=== PATIENT | male | born 1950 | race Caucasian/White ===

== ENCOUNTER 2023-02-28 07:08 | Emergency (ER) | payer BC, SELFPAY ==
[2023-02-28 07:09] VITALS: BP 170/95; PULSE 86; RESP 16; TEMP 37.2; O2SAT 94; BMI 25.4
--- NOTE | 2023-02-28 07:34 | CT_ITS ---
STUDY: CT SOFT TISSUE NECK WITH CONTRAST REASON FOR EXAM: Male, 72 years old. Right submandibular swelling/mass RADIATION DOSAGE (If Supplied By Facility): CTDIvol = ( 15.38 ) mGy, DLP = ( 445.57 ) mGycm TECHNIQUE: The patient was scanned in a multi-detector CT scanner. High resolution transaxial imaging was performed following intravenous administration of IV 75mL Isovue-300. Sagittal and coronal images were reconstructed. Individualized dose optimization techniques were used for this CT. COMPARISON: None. FINDINGS: Normal bilateral parotid glands. 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 Normal bilateral parapharyngeal spaces. Normal bilateral carotid spaces. Normal bilateral sublingual and submandibular glands and spaces. Normal visualized nasopharynx. Normal retropharyngeal space. Normal perivertebral space. Normal visualized bilateral faucial tonsils. The visualized tongue, tongue base and oropharynx are normal. There is a 5.9 cm x 5.5 cm 5 cm heterogeneous complex solid and cystic mass in the right side of the neck extending from just below the right parotid gland down into the right cervical region inferiorly. A neoplastic process should be ruled out. A large abscess should also be considered in the differential diagnosis. There is no demonstrated solid or cystic mass lesion. There is no abnormal contrast enhancement. Normal epiglottis, bilateral vallecula and hypopharynx. The pre-epiglottic and paraglottic adipose spaces are normal. Normal visualized bilateral piriform sinuses, aryepiglottic folds, vocal cords, and arytenoid-cricoid articulations. Normal subglottic trachea. Heterogeneous appearance of the left lobe of the thyroid. Normal visualized pulmonary apices. Normal visualized paranasal sinuses. There is multilevel degenerative changes of the cervical spine. CT/Soft Tissue Neck WITH Contrast IMPRESSION: 5.9 cm x 5.5 cm x 5 cm heterogeneous complex solid and cystic mass in the right neck extending from just below the right parotid gland down into the right cervical region. A neoplastic process should be ruled out. The soft tissue planes are obliterated. This may represent either a neoplastic process or large abscess. Electronically Signed: Christo Fuentes MD at 10:28 EDT ,
--- NOTE | 2023-02-28 07:41 | EX.ED.DYSGE1 ---
HPI History of Present Illness Chief Complaint: Dental Informant: patient Narrative Narrative: Patient is a 72-year-old male with history of tobacco use presenting with worsening right jaw swelling. Patient states for the past 5 and has had progressive worsening swelling of his right jaw at the angle of the mandible. States its mildly uncomfortable. He has been following with a dentist, Dr. Evans, in [facility] who thought it could be infection. He states he had his right lower back molar pulled yesterday. He has not had any prior imaging. Patient is currently on clindamycin. Patient was instructed to come to the emergency room for further evaluation and possible drainage of this swelling is concern for abscess. Patient denies any difficulty swallowing. He has not had a significant supervisor records change the past few days but a progressive worsening of the swelling. Denies any fever or chills. Has had some mild intentional weight loss. Patient and recently moved here from [place]. Patient continues to smoke cigarettes. Denies any night sweats or other systemic symptoms. PFSH PFSH Allergy/AdvReac Type Severity Reaction Status Date / Time No Known Allergies Allergy Verified 02/28/23 07:09 Social History Smoking Status: Current every day smoker tobacco type: cigarettes ROS ROS ED Constitutional Constitutional ED: Reports weight loss; Denies chills, fever(s) or sweats Eyes Eyes: Denies change in vision ENT ENT ED: Reports other Details: right neck/face swelling ; Denies rhinorrhea or sore throat Cardiovascular Cardiovascular: Denies chest pain Respiratory/Chest Respiratory/Chest: Denies cough or dyspnea Gastrointestinal Gastrointestinal: Denies nausea or vomiting Musculoskeletal Musculoskeletal: Reports neck pain; Denies arthralgias or myalgias Integumentary Denies rash Neurologic Neurologic: Denies headache(s) or weakness EXAM Physical Exam Const Vital Signs: 02/28/23 07:09 02/28/23 09:08 Temperature 99 F 97.3 F L Temperature Source Temporal Temporal Pulse Rate 86 65 Respiratory Rate 16 18 Blood Pressure 170/95 H 140/78 H Blood Pressure Mean 120 98 Pulse Ox 94 98 Oxygen Delivery Method Room Air Room Air Positive well nourished and well developed General Appearance ED: well developed and NAD HEENT Reports moist mucous membranes HEENT Narrative: Cerumen impaction on the right. Normal left tympanic membrane. Mild erythema and injury of the right lower back molar consistent with recent extraction. No surrounding edema present. Sublingual mucosa is soft. Normal oropharynx. Patient has approximately 6 cm x 5 cm firm area of swelling/mass at the right angle of the mandible. It is nonmobile. I do not appreciate fluctuance or overlying skin changes. Eyes PERRL and EOMs intact bilaterally Neck supple and no JVD Neck Narrative: Swelling/mass at the right angle of the mandible, see above Chest Wall inspection of chest normal and palpation of chest normal Resp normal respiratory effort and clear to auscultation bilaterally Cardio regular rate, regular rhythm and no murmurs GI normal to inspection, nondistended, normoactive bowel sounds and non-tender Neuro oriented x3 Sensorium / Orientation: alert Motor Exam: Negative for general weakness Psych mental status grossly normal Skin no rashes or lesions noted and no wounds MDM MDM MDM Narrative Medical decision making narrative: Patient is a 72-year-old male presenting with worsening right submandibular swelling/mass. Is been progressively ongoing for about 5 months and he does not have any fever. He was concerned about abscess based on what his dentist said however I am much more concerned about malignancy based on his history of tobacco use, longevity of symptoms and age. There is no airway or esophageal compromise. He is handling his secretions well. Basic lab work and a CT is obtained for further evaluation. Differential includes submandibular mass, abscess and cyst. This does not feel like a lymph node on palpation but that is also on the differential. CBC shows a mild leukocytosis 11.8 which is pretty nonspecific. Lab work otherwise largely unremarkable. No prior labs available for comparison. CT of the soft tissue neck does show a 5.9 x 5.5 x 5 cm heterogenous complex solid and cystic mass in the right neck extending from just below the parotid gland into the right cervical region. Neoplastic process should be ruled out. I did speak with Dr. Dubois, ENT on-call, he also is quite concerned about a neoplastic process and states patient will need outpatient follow-up for biopsy with FNA. Patient is given the office information and counseled on our concerns. Counseled at this time we do not think incision and drainage would be in his best interest and were much more concerned about neoplasm/cancer. He can continue to take the clindamycin ordered by his dentist. Patient and do verbalize agreement nursing of this plan. I did encourage smoking cessation with the patient especially as tobacco use is a risk factor for multiple cancers. He does not have findings consistent with dry sockets and I do not think this is an acute complication associated with his dental extraction from yesterday. Lab Data Attestation: I reviewed the patient's lab results. Labs: Laboratory Results - last 24 hr 02/28/23 07:15 WBC 11.8 H RBC 5.07 Hgb 16.4 Hct 47.7 MCV 94.1 H MCH 32.3 H MCHC 34.4 RDW Std Deviation 46.9 H RDW Coeff of Lilliana 13.6 Plt Count 170 MPV 11.0 Immature Gran % (Auto) 0.500 Neut % (Auto) 55.3 Lymph % (Auto) 27.8 Lee % (Auto) 11.5 H Eos % (Auto) 4.3 Baso % (Auto) 0.6 Absolute Neuts (auto) 6.5 Absolute Lymphs (auto) 3.27 Nucleated RBC % 0 Sodium 142 Potassium 4.4 Chloride 112 H Carbon Dioxide 27.0 Anion Gap 3 L BUN 22 H Creatinine 1.12 Estim Creat Clear Calc 54.10 Est GFR (MDRD) Af Amer 82 Est GFR (MDRD) Non-Af 68 BUN/Creatinine Ratio 19.6 Glucose 104 Calcium 9.4 Radiography Diagnostic Testing: Clinical Impression(s) from Imaging Studies Soft Tissue Neck CT 02/28/23 07:34 IMPRESSION: 5.9 cm x 5.5 cm x 5 cm heterogeneous complex solid and cystic mass in the right neck extending from just below the right parotid gland down into the right cervical region. A neoplastic process should be ruled out. The soft tissue planes are obliterated. This may represent either a neoplastic process or large abscess. Electronically Signed: Christo Fuentes MD at 10:28 EDT , Management Discussion w/another healthcare provider: [facility] Discharge Plan Triage Chief Complaint: Dental ED Provider: Lisbeth Novak Dx/Rx/DC Orders Clinical Impression: Mass of right side of neck, Parotid mass Instructions: ED Salivary Gland Swelling ... Primary Care Provider: Care Physician,No Primary Referrals: Emre Dukes MD [Med Staff - Active Staff] - As soon as possible Care Physician,No Primary [Primary Care Provider] - Activity Restrictions/Additional Instructions: The swelling on your neck is concerning for possible cancer/mass. At this time I have a much lower suspicion for an abscess especially with given how long its been going on. Please follow-up closely with ear nose and throat doctor. Call the office today to let them know that Dr. Devi wanted you to be seen for possible new neck mass/cancer and that you will likely need fine-needle aspirate (FNA) per Dr. Devi. Please continue antibiotics prescribed with your dentist. If you develop any difficulty breathing, swallowing or progression/worsening your symptoms including fever or chills please return immediately to the emergency room. Disposition Disposition: Home, Self Care
[2023-02-28 07:59] LABS: Absolute Lymphocyte Count 3.27 X10^3/uL (0.83-4.51); Absolute Neutrophil Count 6.5 X10^3/uL (2.0-7.7); Basophil# 0.07 X10^3/uL; Basophil% 0.6 % (0-1); Eosinophil# 0.51 X10^3/uL; Eosinophils% 4.3 % (0-5); Hematocrit 47.7 % (40-54); Hemoglobin 16.4 g/dL (13.0-16.5); Lymphocyte # 3.27 X10^3/ul (0.83-4.51); Lymphocyte % 27.8 % (19-41); Mean Corp Hgb Conc 34.4 g/dL (32-36); Mean Corpuscular Hgb 32.3 pg (27.0-32.0); Mean Corpuscular Volume 94.1 fL (80-94); Monocyte# 1.35 X10^3/uL; Monocyte% 11.5 % (0-10); NRBC Flagged by Analyzer 0 % (0-5); Neutrophil % 55.3 % (47-70); Platelet Count 170 K/mm3 (150-450); RBC Distribution Width CV 13.6 % (11.6-14.6); RBC Distribution Width SD 46.9 fl (35.1-43.9); Red Blood Count 5.07 M/mm3 (4.6-6.2); White Blood Count 11.8 K/mm3 (4.4-11.0)
[2023-02-28 08:01] LABS: Anion Gap 3 (5-15); BUN 22 mg/dL (7-18); BUN/Creat Ratio 19.6 RATIO (10-20); Calcium,Total 9.4 mg/dL (8.5-10.1); Chloride 112 mmol/L (98-107); Creatinine, Serum 1.12 mg/dL (0.70-1.30); EST Glomerular Filtration Rate 68 mL/min (>60); Est Glom Filt Rate - Afr Amer 82 mL/min (>60); Glucose 104 mg/dL (74-106); Potassium 4.4 mmol/L (3.5-5.1); Sodium Level 142 mmol/L (136-145)
[2023-02-28 09:08] VITALS: BP 140/78; PULSE 65; RESP 18; TEMP 36.3; O2SAT 98
== END 2023-02-28 11:01 | disposition home or self-care (01) ==
PROVIDERS: Emergency Provider Emergency Medicine; Visit Provider Emergency Medicine
DX: R22.1 Localized swelling, mass and lump, neck (principal); F17.210 Nicotine dependence, cigarettes, uncomplicated
CPT/HCPCS: 70491; 80048; 85025; 99282; Q9967; A4216

== ENCOUNTER → 2023-03-08 | Outpatient (CLI) | payer BC, MEDICARE, SELFPAY ==
--- NOTE | 2023-03-08 | ASPOS_PTH ---
PATIENT: RUIZ SANTOS LOC: [facility] U#:[id number] AGE/SX: 72/M ROOM: RE03/08/[address]: Dr. Federico Estrada MD : 1950 BED: DIS: 03/08/2023 SPEC #: [id number] RECD: 03/08/23 11:43 STATUS: BELEN RAMAKRISHNA #: [id number] KOFFI: 03/08/23 00:[address]: Federico Estrada DEPT: CYTOLOGY RECD BY: Jill Gomez ENTERED: 03/08/23 11:43 SP TYPE: ASP HERE OTHR DR: No Primary Care Phys Tissues: Parotid gland, NOS Procedures: Surgery Specimen Level IV Cytology Other Fine Needle Asp on Site HEADER OPERATION: Fine needle aspiration right parotid gland PRE-OP DIAGNOSIS: Neck mass TISSUE SUBMITTED: Right parotid gland DIAGNOSIS CYTOLOGY Fine needle aspiration, right parotid gland mass (smears and cell block): Marked acute inflammation with changes of benign cyst contents. See comment. AM:alejandro 03/09/2023 COMMENT A fine needle aspiration was performed and the specimen is evaluated at the time of FNA by Dr. Cody. Immediate Evaluation = Consistent with benign cyst contents with acute inflammation. 6.2 cc of light-colored fluid was aspirated from the lesion resulting in significant reduction in size of mass. The smears and cell block show marked acute inflammation with scattered macrophages. There is no evidence of malignancy. Clinical correlation is necessary. Case has been reviewed in consultation with Dr. Whipple who concurs with the above diagnosis. IDC:SJ CYTOLOGY STUDY Slides are reviewed. CYTOLOGY GROSS Received is 6.2 ml of light ramon fluid labeled with the patient's name, and designated right parotid gland. Five imprints and three paps are made from the submitted fluid and the rest is added to CytoLyt for cell block preparation. Submitted for cytology study. / AM:alejandro 03/08/2023 TC:2 CPT: 27814, 60613, 08668, 78037
== END | disposition home or self-care (01) ==
PROVIDERS: Referring Provider Otolaryngology Otolaryngology/Facial Plastic Surgery; Visit Provider Otolaryngology Otolaryngology/Facial Plastic Surgery
DX: D11.0 Benign neoplasm of parotid gland (principal)
CPT/HCPCS: 10021; 88161; 88305

== ENCOUNTER 2023-03-31 03:07 | Emergency (ER) | payer MEDICARE, SELFPAY ==
[2023-03-31 03:08] VITALS: BP 124/67; PULSE 58; RESP 18; TEMP 35.6; O2SAT 100; BMI 23.7
--- NOTE | 2023-03-31 03:14 | CT_ITS ---
INDICATION: headache EXAMINATION: CT BRAIN - CT Head or Brain W/O Contrast Injection TECHNIQUE: Multiple axial images were obtained of the head without intravenous contrast. A radiation dose optimization technique was used for this scan. IV Contrast dosage and agent: None. COMPARISON: Soft tissue neck CT February 28, 2023 FINDINGS: BRAIN PARENCHYMA: No intra- or extra-axial hemorrhage. No evidence of acute infarct. No intracranial mass or mass effect. Mild periventricular and subcortical white matter hypodense chronic small vessel white matter ischemic change. There is preservation of the maier/white matter interface. Posterior fossa structures are unremarkable. Carotid and vertebral atherosclerosis. CSF SPACES: Cerebral volume appropriate for age. No hydrocephalus. Basal cisterns are patent. CALVARIUM, SKULL BASE, PARANASAL SINUSES AND MASTOID AIR CELLS: Acute right maxillary sinus disease with scattered chronic ethmoid mucoperiosteal thickening. Mild chronic wall thickening in the right maxillary sinus. Mastoid air cells are clear. Partially seen right posterior facial mass at the inferior margin of the parotid gland and extending to the right pharyngeal soft tissues posterior to the right mandible, axial image 1,, better assessed February 28, 2023. Mild edema in the right parapharyngeal fat. No acute osseous finding. ORBITS: Both globes, extraocular muscles, optic nerves and retrobulbar fat appear unremarkable. ASPECTS Score for Acute Strokes: 10 CT/Brain/Head without Contrast IMPRESSION: No CT evidence of acute intracranial hemorrhage or injury. Mild senescent changes. Partially seen right posterior facial mass along the inferior right parotid gland extending into the right pharyngeal soft tissues posterior to right mandible. This is better seen on comparison CT neck February 28, 2023. Electronically Signed: Devin Johnson MD at 4:45 EDT ,
[2023-03-31] MEDS: DiphenhydrAMINE 50 MG/ML Syringe 25 MG IV (03:22)
[2023-03-31] MEDS: 0.9% Normal Saline 1,000 ML 1000 ML IV (03:23)
[2023-03-31] MEDS: HYDROmorphone 1 MG/ML Syringe IV (03:23)
[2023-03-31] MEDS: Metoclopramide 10 MG/2 ML Vial 5 MG IV (03:23)
[2023-03-31 03:24] LABS: Absolute Lymphocyte Count 3.95 X10^3/uL (0.83-4.51); Absolute Neutrophil Count 8.2 X10^3/uL (2.0-7.7); Basophil# 0.08 X10^3/uL; Basophil% 0.6 % (0-1); Eosinophil# 0.54 X10^3/uL; Eosinophils% 3.8 % (0-5); Hematocrit 46.3 % (40-54); Hemoglobin 15.5 g/dL (13.0-16.5); Lymphocyte # 3.95 X10^3/ul (0.83-4.51); Lymphocyte % 27.5 % (19-41); Mean Corp Hgb Conc 33.5 g/dL (32-36); Mean Corpuscular Hgb 31.4 pg (27.0-32.0); Mean Corpuscular Volume 93.9 fL (80-94); Mean Platelet Vol. 11.1 fl (6.2-12.0); Monocyte# 1.52 X10^3/uL; Monocyte% 10.6 % (0-10); NRBC Flagged by Analyzer 0 % (0-5); Neutrophil # 8.21 X10^3/uL (2.7-7.7); Neutrophil % 56.9 % (47-70); POSITIVE DIFFERENTIAL YES; Platelet Count 184 K/mm3 (150-450); RBC Distribution Width CV 13.3 % (11.6-14.6); RBC Distribution Width SD 46.1 fl (35.1-43.9); Red Blood Count 4.93 M/mm3 (4.6-6.2); White Blood Count 14.4 K/mm3 (4.4-11.0)
[2023-03-31 03:27] LABS: Differential Indicated SCAN CRITERIA MET
[2023-03-31 03:30] LABS: Erythrocyte Sedimentation Rate 5 mm/hr (0-20)
[2023-03-31 03:39] LABS: ALB/GLOB Ratio 1.1 RATIO (0.9-2.4); AST(SGOT) 12 U/L (15-37); Alanine Aminotransfer ALT/SGPT 19 U/L (16-61); Albumin, Serum 3.5 g/dL (3.2-5.0); Alkaline Phosphatase 102 U/L (45-117); Anion Gap 7 (5-15); BUN 19 mg/dL (7-18); BUN/Creat Ratio 16.7 RATIO (10-20); Calcium,Total 9.3 mg/dL (8.5-10.1); Chloride 111 mmol/L (98-107); Creatinine, Serum 1.14 mg/dL (0.70-1.30); EST Glomerular Filtration Rate 67 mL/min (>60); Est Glom Filt Rate - Afr Amer 81 mL/min (>60); Estimated Creatinine Clearance 53.15 ml/min; Globulin 3.3 g/dL (2.2-4.2); Glucose 135 mg/dL (74-106); Potassium 3.9 mmol/L (3.5-5.1); Protein, Total 6.8 g/dL (6.4-8.2); Sodium Level 141 mmol/L (136-145)
--- NOTE | 2023-03-31 03:39 | EX.ED.DYSGE1 ---
HPI History of Present Illness Chief Complaint: Headache Narrative Narrative: Patient has had a mass in the right neck region for at least 6 months, he is due to have surgery at soon, however today he developed a headache. He has had headaches for a few months and has been similar however today it is worse. It was gradual in onset. It was not a thunderclap headache. He has no vision changes no weakness or paresthesias no fevers or chills. PFSH PFSH Home Medications NK 03/31/23 [History Last Taken Unknown] Allergy/AdvReac Type Severity Reaction Status Date / Time No Known Allergies Allergy Verified 03/31/23 03:07 Surgical History (Updated 03/31/23 @ 03:09 by Dayana Mccauley) H/O kidney removal Total knee replacement status Social History Smoking Status: Current every day smoker tobacco type: cigars ROS ROS ED ROS Narrative Past medical history: Reviewed Medications: Reviewed Social history: Noncontributory Review of systems: All systems negative except as indicated General: No fever Eyes: No visual changes ENT: Right neck mass Neck: No neck pain Cardiovascular: No chest pain Respiratory: No shortness of breath or cough Gastrointestinal: No abdominal pain, nausea vomiting or diarrhea Genitourinary: No dysuria Musculoskeletal: Denies myalgias no difficulty with ambulation Skin: No rash Neurological: No memory loss, confusion or any focal weakness. Headache as in HPI Psych: No recent behavioral changes Hematologic: No easy bleeding or easy bruising EXAM Physical Exam Narrative Exam Narrative: Physical exam General: Patient appears somewhat uncomfortable Head: Normocephalic, Atraumatic Eyes: Conjunctiva not pale ENT: Moist mucous membranes Neck: Right-sided neck mass, no signs of infection. Normal voice handling secretions well, the mass is not near the airway Cardiovascular: Regular rate, Regular rhythm Respiratory: No distress, CTA bilaterally Abdomen: Soft, Nontender, Nondistended Back: Nontender, Normal Inspection. Negative for: CVA tenderness Extremities: Nontender, No edema Skin: Normal color, No rash Neurological: Alert, Normal Strength, Normal Sensation Const Vital Signs: 03/31/23 03:08 03/31/23 04:41 Temperature 96.1 F L Temperature Source Temporal Pulse Rate 58 L 52 L Respiratory Rate 18 15 Blood Pressure 124/67 H 124/59 H Blood Pressure Mean 86 80 Pulse Ox 100 96 Oxygen Delivery Method Room Air MDM MDM MDM Narrative Medical decision making narrative: Patient received migraine cocktail and analgesics, he improved he is feeling much better and wants to be discharged home. I thought about possibility of giant cell arteritis, however ESR is normal. I thought about intracranial mass since he has neck mass however this is unfounded on the CT. There is no evidence of infectious disease like meningitis or encephalitis. He likely has a primary headache. Since he improved he will be discharged home. I talked to his also giving some of the history that she will take him home. Lab Data Labs: Laboratory Results - last 24 hr 03/31/23 03:15 WBC 14.4 H RBC 4.93 Hgb 15.5 Hct 46.3 MCV 93.9 MCH 31.4 MCHC 33.5 RDW Std Deviation 46.1 H RDW Coeff of Lilliana 13.3 Plt Count 184 MPV 11.1 Immature Gran % (Auto) 0.600 Neut % (Auto) 56.9 Lymph % (Auto) 27.5 [place] % (Auto) 10.6 H Eos % (Auto) 3.8 Baso % (Auto) 0.6 Absolute Neuts (auto) 8.2 H Absolute Lymphs (auto) 3.95 Nucleated RBC % 0 Differential Comment SCANNED Diff Path Review May foll ESR 5 Sodium 141 Potassium 3.9 Chloride 111 H Carbon Dioxide 23.0 Anion Gap 7 BUN 19 H Creatinine 1.14 Estim Creat Clear Calc 53.15 Est GFR (MDRD) Af Amer 81 Est GFR (MDRD) Non-Af 67 BUN/Creatinine Ratio 16.7 Glucose 135 H Calcium 9.3 Total Bilirubin 0.60 AST 12 L ALT 19 Alkaline Phosphatase 102 Total Protein 6.8 Albumin 3.5 Globulin 3.3 Albumin/Globulin Ratio 1.1 Radiography Diagnostic Testing: Clinical Impression(s) from Imaging Studies Brain CT 03/31/23 03:14 IMPRESSION: No CT evidence of acute intracranial hemorrhage or injury. Mild senescent changes. Partially seen right posterior facial mass along the inferior right parotid gland extending into the right pharyngeal soft tissues posterior to right mandible. This is better seen on comparison CT neck February 28, 2023. Electronically Signed: Devin Johnson MD at 4:45 EDT , Discharge Plan Triage Chief Complaint: Headache ED Provider: Rafael Camacho Dx/Rx/DC Orders Clinical Impression: Mass in neck, Headache Instructions: ED Headache Unspecified Prescriptions: No Action NK Primary Care Provider: Care Physician,No Primary Referrals: Care Physician,No Primary [Primary Care Provider] - Disposition Disposition: Home, Self Care
[2023-03-31 04:28] LABS: Differential Comment SCANNED
[2023-03-31 04:41] VITALS: BP 124/59; PULSE 52; RESP 15; O2SAT 96
[2023-03-31 05:07] VITALS: BP 126/59; PULSE 61; RESP 18; O2SAT 98
[2023-04-03 12:29] LABS: Pathologist Review Reviewed
== END 2023-03-31 05:08 | disposition home or self-care (01) ==
PROVIDERS: Emergency Provider Emergency Medicine; Visit Provider Emergency Medicine
DX: R22.1 Localized swelling, mass and lump, neck (principal); R51.9 Headache, unspecified; F17.290 Nicotine dependence, other tobacco product, uncomplicated
CPT/HCPCS: 70450; 80053; 85025; 85652; 96361; 96374; 96375; 99283; J7030; A4216

== ENCOUNTER 2023-10-17 04:51 | Observation (INO) | payer MEDICARE, SELFPAY ==
[2023-10-17] VITALS (12 sets, daily range): BP systolic 87–121; BP diastolic 55–75; PULSE 83–105; RESP 14–27; TEMP 36.5–37.6; O2SAT 94–100; BMI 20.1; BMI 20.7
--- NOTE | 2023-10-17 05:11 | RAD_ITS ---
EXAM: XR CHEST, 2 VIEWS CLINICAL INDICATION: fever, cough TECHNIQUE: Frontal and lateral views of the chest. COMPARISON: No relevant prior studies available. FINDINGS: LUNGS AND PLEURAL SPACES: Large area of consolidation in the right midlung consistent with pneumonia probably in the superior segment of the right lower lobe in posterior and anterior segments of the right upper lobe. No pneumothorax. No effusion. HEART: Unremarkable. Cardiac silhouette not enlarged. MEDIASTINUM: Central airways and mediastinal contour are unremarkable. BONES/JOINTS: Unremarkable. No acute fracture. SOFT TISSUES: Unremarkable. RAD/Chest PA and Lateral IMPRESSION: Large area of consolidation in the right midlung consistent with pneumonia probably in the superior segment of the right lower lobe in posterior and anterior segments of the right upper lobe. Electronically Signed: Saturnino Wallace MD at 6:30 EDT ,
--- NOTE | 2023-10-17 05:12 | EX.ED.DYSGE1 ---
HPI History of Present Illness Chief Complaint: Fever Informant: patient and spouse/S.O. Onset/Context/Timing Onset: Yesterday Context: Gradual Onset Timing: Waxes and wanes Quality: 103 Current Severity: Mild Maximum Severity: Moderate Relieved by: apap Narrative Narrative: brings in this patient with a fever up to 103 at home. He has had a mild nonproductive cough with this for the last day or 2. states for the past 2 weeks, patient is given complaining of some pain in his right lower lateral rib cage/flank. Denies any urinary symptoms that are new, and no dysuria/hematuria. Has had diarrhea that has been worse than usual since he last had chemo in May. Patient denies any travel out of the area and denies sick contacts. He states he usually walks 5 or 6 miles a day, but now is walking less because of the pain in his side hurts more to do so. This being the case, he states that in the last couple days the pain has been coming and going and been much more mild than it had been and right now he does not have it. PFSH PFSH Medical History Cancer DVT (deep venous thrombosis) Kidney stones Osteoporosis Smoker Home Medications Lactobacillus acidophilus 10 billion cell capsule (Probacap) 100 mmu cells PO DAILY 10/17/23 [History Last Taken Unknown] amoxicillin 875 mg-potassium clavulanate 125 mg tablet 875 mg (0.875 x 875-125 mg) PO Q12H #20 TABLETS 10/17/23 [Rx Last Taken Unknown] azithromycin 250 mg tablet 250 mg PO DAILY #4 TABLETS 10/17/23 [Rx Last Taken Unknown] Allergy/AdvReac Type Severity Reaction Status Date / Time No Known Allergies Allergy Verified 03/31/23 03:07 Surgical History H/O kidney removal Total knee replacement status Social History Smoking Status: Current every day smoker tobacco type: cigars ROS ROS ED Constitutional Constitutional ED: Reports chills and fever(s) Eyes Eyes: Denies change in vision or diplopia ENT ENT ED: Denies rhinorrhea or sore throat Cardiovascular Cardiovascular: Denies chest pain or palpitations Respiratory/Chest Respiratory/Chest: Reports cough; Denies dyspnea Gastrointestinal Gastrointestinal: Reports diarrhea; Denies abdominal pain, nausea or vomiting Genitourinary Genitourinary ED: Reports flank pain; Denies dysuria or hematuria Musculoskeletal Musculoskeletal: Denies back pain or neck pain Integumentary Denies abscess or rash Neurologic Neurologic: Denies headache(s), paresthesias or weakness Psychiatric Psychiatric: Denies suicidal ideation or suicidal thoughts EXAM Physical Exam Const Vital Signs: 10/17/23 04:53 10/17/23 05:38 10/17/23 07:00 Temperature 99.6 F H Temperature Source Oral Pulse Rate 105 H 97 90 Respiratory Rate 19 H 16 27 H Blood Pressure 121/69 H 96/58 L 111/62 Blood Pressure Mean 86 70 78 Pulse Ox 100 99 97 Oxygen Delivery Method Room Air Nasal Cannula Room Air Positive well nourished and well developed General Appearance ED: well developed and NAD HEENT Reports moist mucous membranes HEENT Narrative: Dry lips normocephalic and atraumatic Eyes PERRL and EOMs intact bilaterally Neck full ROM, no lymphadenopathy, supple and no JVD Chest Wall inspection of chest normal and palpation of chest normal Chest Narrative: Nontender throughout right-sided rib cage where patient indicates he was having the pain. And no subcostal tenderness. Normal on inspection no rash. Resp normal respiratory effort and clear to auscultation bilaterally Cardio regular rate and regular rhythm Cardio Narrative: Faint heart sounds GI non-tender and non-distended Auscultation: normoactive bowel sounds Palpation: soft Back/Spine no CVA tenderness General Back: other FROM Extremity normal to inspection General Extremety ED: Negative for edema, pulses abnormal or tenderness General Extremity: Negative for edema or pulses abnormal Neuro oriented x3, CN's II-XII intact bilaterally and no sensory deficits noted Sensorium / Orientation: awake and alert Motor Exam: strength 5/5 throughout Psych mental status grossly normal Skin no rashes or lesions noted and no wounds MDM MDM MDM Narrative Medical decision making narrative: Patient's 2 view chest x-ray shows a large right-sided infiltrate involving several lobes, this explains that the pain he was having on his side, his cough, and his fever. Given this and his leukocytosis with a strong left shift, I added a lactic acid, hepatic panel so I could look at his bilirubin, and blood cultures. All this was done and we gave him Zosyn and azithromycin to cover him for community-acquired pneumonia. The lactate returned within normal limits, his total bilirubin is slightly elevated but not at the 2 or higher threshold that we use for septic criteria. In addition to this with his IV fluids, his heart rate improved, his blood pressure improved, and with ambulation he was not dyspneic, felt well, and went no lower than 97% on room air and for the most part is at 99-100%. I discussed with he and his my concern for the pneumonia, and offered admission, but they declined and he feels well enough to go home and prefers that. I think this is reasonable at this time. His port score is 3, which also supports outpatient or inpatient treatment depending on clinical judgment. Given this I am going to prescribe him dual antibiotic therapy for better coverage; Augmentin and Zithromax, continuing what we started as far as coverage. Discussed reasons to return. He is comfortable with that plan. In speaking more with the patient about follow-up he states he does not have a family doctor. Referred him to the next doctor on the unassigned list, Dr. Richards. Lab Data Attestation: I reviewed the patient's lab results. Labs: Laboratory Results - last 24 hr 10/17/23 10/17/23 10/17/23 05:30 07:35 07:40 WBC 18.1 H RBC 4.43 L Hgb 14.4 Hct 44.1 MCV 99.5 H MCH 32.5 H MCHC 32.7 RDW Std Deviation 54.0 H RDW Coeff of [place]illiana 14.6 Plt Count 166 MPV 11.1 Immature Gran % (Auto) 1.400 H Neut % (Auto) 90.0 H Lymph % (Auto) 4.1 L [place] % (Auto) 3.8 Eos % (Auto) 0.3 Baso % (Auto) 0.4 Absolute Neuts (auto) 16.3 H Absolute Lymphs (auto) 0.75 L Nucleated RBC % 0 Sodium 136 Potassium 4.0 Chloride 103 Carbon Dioxide 26.0 Anion Gap 7 BUN 34 H Creatinine 1.37 H Estim Creat Clear Calc 39.01 Est GFR (MDRD) Af Amer 65 Est GFR (MDRD) Non-Af 54 L BUN/Creatinine Ratio 24.8 H Glucose 84 Lactic Acid 1.3 Calcium 9.4 Total Bilirubin 1.30 H Direct Bilirubin 0.32 H AST 11 L ALT 17 Alkaline Phosphatase 97 Total Protein 7.4 Albumin 3.2 Globulin 4.2 Urine Color Yellow Urine Clarity Clear Urine pH 6.0 Ur Specific [place] 1.015 Urine Protein 30 H Urine Glucose (UA) Normal Urine Ketones 5 H Urine Occult Blood 10 H Urine Nitrite Negative Urine Bilirubin Negative Urine Urobilinogen Normal Ur Leukocyte Esterase 25 H Urine RBC 0-5 SEEN Urine WBC 0-5 SEEN Ur Squamous Epith Cells 0-5 SEEN Urine Bacteria 1+ Urine Mucus 0 SEEN Radiography Diagnostic Testing: Clinical Impression(s) from Imaging Studies Chest X-Ray 10/17/23 05:11 IMPRESSION: Large area of consolidation in the right midlung consistent with pneumonia probably in the superior segment of the right lower lobe in posterior and anterior segments of the right upper lobe. Electronically Signed: Saturnino Wallace MD at 6:30 EDT , Discharge Plan Triage Chief Complaint: Fever ED Provider: Doc Uriarte Dx/Rx/DC Orders Clinical Impression: Community acquired pneumonia Instructions: ED Pneumonia (Adult) Prescriptions: New azithromycin [azithromycin] 250 mg tablet 250 mg PO DAILY Qty: 4 0RF amoxicillin-pot clavulanate [amoxicillin-pot clavulanate] 875-125 mg tablet 875 mg PO Q12H Qty: 20 0RF No Action Probacap 10 billion cell capsule 100 mmu cells PO DAILY Primary Care Provider: Care Physician,No Primary Referrals: Severo Richards MD [Med Staff - [employer]] - As soon as possible Activity Restrictions/Additional Instructions: Continue taking your probiotic to prevent help prevent antibiotic associated diarrhea and C. difficile. You can start taking the Augmentin whenever you get it, start the Zithromax tomorrow morning 10/17, it is only once daily and you had a dose in the ER. Disposition Disposition: Home, Self Care
[2023-10-17] MEDS: 0.9% Normal Saline (1000mL) 1,000 ML 999 ML IV (05:37)
[2023-10-17 06:02] LABS: Anion Gap 7 (5-15); BUN 34 mg/dL (7-18); BUN/Creat Ratio 24.8 RATIO (10-20); Calcium,Total 9.4 mg/dL (8.5-10.1); Chloride 103 mmol/L (98-107); Creatinine, Serum 1.37 mg/dL (0.70-1.30); EST Glomerular Filtration Rate 54 mL/min (>60); Est Glom Filt Rate - Afr Amer 65 mL/min (>60); Estimated Creatinine Clearance 39.01 ml/min; Glucose 84 mg/dL (74-106); Sodium Level 136 mmol/L (136-145)
[2023-10-17 07:02] LABS: Absolute Lymphocyte Count 0.75 X10^3/uL (0.83-4.51); Absolute Neutrophil Count 16.3 X10^3/uL (2.0-7.7); Basophil# 0.07 X10^3/uL; Basophil% 0.4 % (0-1); Eosinophil# 0.05 X10^3/uL; Eosinophils% 0.3 % (0-5); Hematocrit 44.1 % (40-54); Hemoglobin 14.4 g/dL (13.0-16.5); Lymphocyte # 0.75 X10^3/ul (0.83-4.51); Lymphocyte % 4.1 % (19-41); Mean Corp Hgb Conc 32.7 g/dL (32-36); Mean Corpuscular Hgb 32.5 pg (27.0-32.0); Mean Corpuscular Volume 99.5 fL (80-94); Mean Platelet Vol. 11.1 fl (6.2-12.0); Monocyte# 0.68 X10^3/uL; Monocyte% 3.8 % (0-10); NRBC Flagged by Analyzer 0 % (0-5); Neutrophil # 16.29 X10^3/uL (2.7-7.7); POSITIVE MORPHOLOGY YES; Platelet Count 166 K/mm3 (150-450); RBC Distribution Width CV 14.6 % (11.6-14.6); Red Blood Count 4.43 M/mm3 (4.6-6.2); White Blood Count 18.1 K/mm3 (4.4-11.0)
[2023-10-17 07:11] LABS: Differential Indicated SCAN CRITERIA MET
[2023-10-17 07:29] LABS: AST(SGOT) 11 U/L (15-37); Alanine Aminotransfer ALT/SGPT 17 U/L (16-61); Albumin, Serum 3.2 g/dL (3.2-5.0); Alkaline Phosphatase 97 U/L (45-117); Bilirubin, Direct 0.32 mg/dL (0.00-0.30); Globulin 4.2 g/dL (2.2-4.2); Protein, Total 7.4 g/dL (6.4-8.2)
[2023-10-17 07:53] LABS: Mucous, Urine 0 SEEN /hpf (<or=2+)
[2023-10-17] MEDS: Piperacil/Tazobactam 4.5 GM in 0.9% Normal Saline (100mL MB+) 100 ML IV (07:54)
[2023-10-17 08:04] LABS: Color, Urine Yellow (Yellow); Glucose, Dipstick Normal (Normal); Ketone-Dipstick 5 mg/dl (Negative); Leukocyte Esterase-Dipstick 25 /ul (Negative); Nitrite-Dipstick Negative (Negative); Occult Blood-Urine 10 /ul (Negative); Protein-Dipstick 30 mg/dl (Negative); Specific Gravity, Urine 1.015 (1.002-1.030); Urine Bilirubin Dipstick Negative (Negative); Urine Clarity Clear (Clear); Urine Urobilinogen Normal (Normal)
[2023-10-17 08:13] LABS: Bacteria 1+ /hpf (None Seen); Red Blood Cells-Urine 0-5 SEEN /hpf (0-5); Squamous Epithelial Cells - UA 0-5 SEEN /hpf (0-5); White Blood Cells 0-5 SEEN /hpf (0-5)
[2023-10-17 08:20] LABS: Lactic Acid 1.3 mmol/L (0.4-1.9)
[2023-10-17] MEDS: Azithromycin 500 MG in Dextrose 5%-Water (250mL Bag) 250 ML 250 MG IV (08:33)
--- NOTE | 2023-10-17 10:02 | PCM.HP.STD ---
HPI - General General Date of Admission: 10/17/23 Date of Service: 10/17/23 Chief Complaint: High-grade fever for last 2 days HPI Narrative RUIZ SANTOS, is a 72 M who has been sick for 2 weeks but had fever high degree last 2 days his is main caregiver and states that she measured 103 Fahrenheit at 7 PM last night and 901.2 Fahrenheit at 4 AM. Yesterday also he was running temperature 101 Fahrenheit 102 Fahrenheit. Patient has been sick for last 2 weeks with right lower and lateral chest wall pain which worse on coughing. He also has cough mainly dry for last 2 days. He had a history of cancer of the throat and completed chemoradiation on June 01, [address] Alcantar in . Patient has been having diarrhea since then usually anywhere between 3 times per day to 8 times per day like watery consistency with fecal disintegration with no blood. Patient syndrome and asked about alcohol use, he was told to see PCP. Sometimes abdominal cramps but not significant. In ED, patient was mildly tachycardic 105/min, temperature 99.6 ?F pulse ox normal. Chest x-ray individually reviewed and significant for large area of consolidation multifocal in the right middle lobe and right lower lobe and posterior segments of right upper lobe. Initially initially thought to discharge him on azithromycin and amox-clav but to drop blood pressure, 96/58, 87/55, 92/57 therefore was admitted. Since then patient desisted and blood pressure regular testing 104/59. PFSH Medical History Cancer DVT (deep venous thrombosis) Kidney stones Osteoporosis Smoker Home Medications Lactobacillus acidophilus 10 billion cell capsule (Probacap) 100 mmu cells PO DAILY 10/17/23 [History Last Taken 10/16/23] amoxicillin 875 mg-potassium clavulanate 125 mg tablet 875 mg (0.875 x 875-125 mg) PO Q12H #20 TABLETS 10/17/23 [Rx Last Taken Unknown] azithromycin 250 mg tablet 250 mg PO DAILY #4 TABLETS 10/17/23 [Rx Last Taken Unknown] Allergy/AdvReac Type Severity Reaction Status Date / Time No Known Allergies Allergy Verified 10/17/23 12:53 Surgical History H/O kidney removal Total knee replacement status Social History Smoking Status: Current every day smoker tobacco type: cigars ROS ROS Narrative Constitutional: Reports fatigue and weakness. No fever. HEENT: Hard of hearing. Reports systems reviewed and no addt'l complaints, except as documented Respiratory/Chest:Right-sided chest wall pain as described in HPI. Patient describes that he walks 4 to 5 miles until recently got sick. Looks mild short of breath on exertion. CVS: As described in HPI. Gastrointestinal: Denies coffee ground emesis, hematemesis or vomiting Genitourinary: Denies burning urination or new urinary tract symptoms Musculoskeletal: Denies acute joint pain or limited range of motion. No acute injury Neurologic: Denies seizure-like symptoms. skin: No ulcer. No rash Endocrinology: Reports systems reviewed and no addt'l complaints, except as documented Hematologic/Lymphatic: Reports systems reviewed and no addt'l complaints, except as documented Rest 14 ROS are negative except as mentioned in HPI Vital Signs Vital Signs Vital Signs: 10/17/23 04:53 10/17/23 05:38 10/17/23 07:00 Temperature 99.6 F H Temperature Source Oral Pulse Rate 105 H 97 90 Respiratory Rate 19 H 16 27 H Blood Pressure 121/69 H 96/58 L 111/62 Blood Pressure Mean 86 70 78 Pulse Ox 100 99 97 Oxygen Delivery Method Room Air Nasal Cannula Room Air 10/17/23 09:31 Temperature Temperature Source Pulse Rate 89 Respiratory Rate 14 Blood Pressure 87/55 L Blood Pressure Mean 65 Pulse Ox 96 Oxygen Delivery Method Room Air Weight Weight: 128 lb 8.472 oz Body Mass Index (BMI) 20.1 Physical Exam Narrative General: Alert, Oriented x3, Cooperative HEENT: Atraumatic, PERRLA, EOMI, Normocephalic Oral: Oral mucosa dry. No Gingival or Mucosal Lesions/ Ulcerations Neck: Supple, No JVD, Negative Carotid Bruits Chest wall/Lungs: Air entry diminished predominantly in right lung base posteriorly. Mild fine expiratory crepitations. Cardiovascular: Regular rate, Regular Rhythm, Normal S1, Normal S2, No M/G/R Abdomen: Bowel Sounds Present, Soft, Non Tender, Non-Distended. Discomfort shape : No dysuria. No renal angle tenderness. No suprapubic tenderness. Extremities: No edema, Capillary Refill Less than 3 Seconds Skin: No rashes, No breakdown Musculoskeletal: Decreased muscle bulk while lower extremities arms, interscapular muscles. Loss of subcutaneous fat. No Tenderness to Palpation of Joints or Extremities Neurological: Cranial nerves II-XII grossly intact, DTR 2+/4. No acute focal neurological deficit. Psych/Mental Status: Flat affect. Results Lab / Micro Data 10/17/23 05:30 10/17/23 05:30 Labs: Laboratory Results - last 24 hr 10/17/23 05:30: WBC 18.1 H, RBC 4.43 L, Hgb 14.4, Hct 44.1, MCV 99.5 H, MCH 32.5 H, MCHC 32.7, RDW Std Deviation 54.0 H, RDW Coeff of Lilliana 14.6, Plt Count 166, MPV 11.1, Immature Gran % (Auto) 1.400 H, Neut % (Auto) 90.0 H, Lymph % (Auto) 4.1 L, [place] % (Auto) 3.8, Eos % (Auto) 0.3, Baso % (Auto) 0.4, Absolute Neuts (auto) 16.3 H, Absolute Lymphs (auto) 0.75 L, Nucleated RBC % 0, Sodium 136, Potassium 4.0, Chloride 103, Carbon Dioxide 26.0, Anion Gap 7, BUN 34 H, Creatinine 1.37 H, Estim Creat Clear Calc 39.01, Est GFR (MDRD) Af Amer 65, Est GFR (MDRD) Non-Af 54 L, BUN/Creatinine Ratio 24.8 H, Glucose 84, Calcium 9.4, Total Bilirubin 1.30 H, Direct Bilirubin 0.32 H, AST 11 L, ALT 17, Alkaline Phosphatase 97, Total Protein 7.4, Albumin 3.2, Globulin 4.2 10/17/23 07:35: Lactic Acid 1.3 10/17/23 07:40: Urine Color Yellow, Urine Clarity Clear, Urine pH 6.0, Ur Specific [place] 1.015, Urine Protein 30 H, Urine Glucose (UA) Normal, Urine Ketones 5 H, Urine Occult Blood 10 H, Urine Nitrite Negative, Urine Bilirubin Negative, Urine Urobilinogen Normal, Ur Leukocyte Esterase 25 H, Urine RBC 0-5 SEEN, Urine WBC 0-5 SEEN, Ur Squamous Epith Cells 0-5 SEEN, Urine Bacteria 1+, Urine Mucus 0 SEEN Micro: Microbiology 10/17/23 05:34 Mucosa - Nose SARS-CoV-2, Influenza & RSV (PCR) - Final Imaging Radiology Impression Chest X-Ray 10/17/23 05:11 IMPRESSION: Large area of consolidation in the right midlung consistent with pneumonia probably in the superior segment of the right lower lobe in posterior and anterior segments of the right upper lobe. Electronically Signed: Saturnino Wallace MD at 6:30 EDT , Assessment & Plan Assessment/Plan (1) Community acquired pneumonia: QUALIFIERS: Laterality: right Lung location: lower lobe of lung Qualified Code(s): J18.9 - Pneumonia, unspecified organism PLAN: Plan This is a 72-year-old gentleman came to ED for fever and cough for last 2 days with right-sided chest wall for 2 weeks with chest x-ray finding consistent with multifocal pneumonia 1. Multifocal multilobar community-acquired pneumonia involving RML, RLL and partial RUL possible healthcare associated/immunocompromised host: Patient is being admitted in PCU. Patient has significant leukocytosis with left shift, 1.4% immature granulocytes, 90% neutrophil 4.2% lymphocytes. Lactic acid normal. Patient had mild hypotension that recovered with IV fluid. Patient is started on IV broad-spectrum antibiotic vancomycin and Zosyn. Pneumonia workup ordered. Lactic acid normal. Patient might have hypotension also from diarrhea mentioned below. At present time patient does not meet criteria for sepsis. 2. 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 Probiotic increased to 3 times daily. Diarrhea varies anywhere between 3 times per day to 8-10 times per day lately and watery. Enteric bacterial panel, stool for WBC, occult blood, Giardia PCR and C. difficile ordered. 3. History of throat cancer completed chemoradiation on June 01, [address] Alcantar: As per his PET scan in September was good. He is in remission. 4. History of osteoporosis: Not on bisphosphonate. 5. Cigar current smoker: Advised quitting cigar. 6. DVT prophylaxis with history of DVT in the past: Patient not on anticoagulant. Lovenox 40 mg subcu daily. Living will/advanced directive/end of life care: Patient does have living will or advanced directive. After discussion of benefits/risks procedures involved with full code, DNR CC arrest and DNR CC, the patient and his opted for full code. Patient does want artificial life support including intubation, tube feed, ventilator and/chest compression, central venous catheter, vasopressor and DC shock if needed Total time spent in [id number] encounter in discussion of advanced directive 17 minutes. Charges/Coding Visit Charges Inpatient E&M: 38137 Init Hosp L3 Procedures Hospitalists Procedures: 71045 Advncd Care Plan 30 Min
--- NOTE | 2023-10-17 10:02 | NURSING ---
DR CHÁVEZ FOR DR SOFIA
--- NOTE | 2023-10-17 10:05 | NURSING ---
PCU KYLER MULILOBAR PNEUMONIA, LEUKOCYTOSIS, HYPOTENSION
[2023-10-17] MEDS: Vancomycin IV 1,000 MG/200 ML BAG 200 MG IV (11:17)
[2023-10-17 11:28] LABS: CPK Total, Creatine Kinase 19 U/L (39-308)
[2023-10-17 11:51] LABS: International Normalized Ratio 1.4; Prothrombin Time (Protime)PT. 17.2 SECONDS (11.7-14.9)
[2023-10-17 11:52] LABS: Partial Thromboplast Time 39.1 Seconds (24.1-36.2)
[2023-10-17 12:11] LABS: Lactic Acid 1.4 mmol/L (0.4-1.9)
--- NOTE | 2023-10-17 12:41 | EKG12_ITS ---
Test Reason : Blood Pressure : / mmHG Vent. Rate : 094 BPM Atrial Rate : 094 BPM P-R Int : 164 ms QRS Dur : 076 ms QT Int : 346 ms P-R-T Axes : 069 -23 048 degrees QTc Int : 432 ms Sinus rhythm with Premature atrial complexes Otherwise normal ECG No previous ECGs available Confirmed by Saturnino Madrid ([id number]), mapping editor DONATO MEEKS ([id number]) on 10/19/2023 1:58:21 PM Referred By: KYLER Confirmed By:Saturnino Madrid
[2023-10-17] MEDS: Enoxaparin 40 MG/0.4 ML Syringe SC (13:00)
[2023-10-17] MEDS: guaiFENesin/D-Methorphan TAB.SR.12H 2 TABLET PO ×2 (13:00→21:45)
[2023-10-17] MEDS: Piperacil/Tazobactam 3.375 GM in 0.9% Normal Saline (50mL MB+) 50 ML IV ×2 (15:00→21:49)
[2023-10-17] MEDS: Ipratropium/Albuterol Sulfate 3 ML AMPUL.NEB INHALATION ×3 (15:14→22:49)
--- NOTE | 2023-10-17 15:27 | PHA.PHARE_ITS ---
Consult Antibiotic Management Pharmacy has been consulted to manage selected antibiotic: Vancomycin Type of Intervention Type of Consult: New start Suspected Infection Suspected Infection: Pneumonia Labs Labs: Sodium 136 mmol/L (136-145) 10/17/23 05:30 Potassium 4.0 mmol/L (3.5-5.1) 10/17/23 05:30 Chloride 103 mmol/L (98-107) 10/17/23 05:30 Carbon Dioxide 26.0 mmol/L (21.0-32.0) 10/17/23 05:30 Anion Gap 7 (5-15) 10/17/23 05:30 BUN 34 mg/dL (7-18) H 10/17/23 05:30 Creatinine 1.37 mg/dL (0.70-1.30) H 10/17/23 05:30 Est GFR (MDRD) Af Amer 65 mL/min (>60) 10/17/23 05:30 Est GFR (MDRD) Non-Af 54 mL/min (>60) L 10/17/23 05:30 BUN/Creatinine Ratio 24.8 RATIO (10-20) H 10/17/23 05:30 Glucose 84 mg/dL (74-106) 10/17/23 05:30 Microbiology Microbiology: Microbiology 10/17/23 05:34 Mucosa - Nose SARS-CoV-2, Influenza & RSV (PCR) - Final Dosing Weight Weight used for dosin lb 4.438 oz Estimated Creatinine Clearance Estimated Creatinine Clearance: 40.1ML/MIN Goal Trough Goal Trough: 15-20 mcg/mL Pharmacy Plan for Drug Dosing Pharmacy Plan for Drug Dosing: Give initial dose (standard 15mg/kg) of 1000mg IV x1, then continue with 500mg IV q12h per [facility] dosing protocol. Will order a trough to be drawn before the 4th total dose tomorrow night. Pharmacy Service will continue to monitor and adjust dosing as required. Follow-Up Labs Follow-Up Labs: Trough: Vancomycin Date/Time Labs Ordered Labs to be done on [date and time ordered]: 10/18/23 22:30
[2023-10-17] MEDS: 0.9% Saline Lock 10 ML Syringe IV (23:39)
[2023-10-17] MEDS: Vancomycin IV 500 MG/100 ML BAG 100 MG IV (23:39)
[2023-10-18] VITALS (9 sets, daily range): BP systolic 94–133; BP diastolic 54–77; PULSE 82–100; RESP 16–18; TEMP 36.6–37.7; O2SAT 96–100
[2023-10-18] MEDS: Ipratropium/Albuterol Sulfate 3 ML AMPUL.NEB INHALATION ×5 (03:29→19:14)
[2023-10-18] MEDS: Piperacil/Tazobactam 3.375 GM in 0.9% Normal Saline (50mL MB+) 50 ML IV ×3 (06:20→22:01)
[2023-10-18 08:12] LABS: Absolute Lymphocyte Count 0.62 X10^3/uL (0.83-4.51); Absolute Neutrophil Count 13.5 X10^3/uL (2.0-7.7); Basophil# 0.04 X10^3/uL; Basophil% 0.3 % (0-1); Eosinophil# 0.14 X10^3/uL; Eosinophils% 0.9 % (0-5); Hematocrit 30.9 % (40-54); Lymphocyte # 0.62 X10^3/ul (0.83-4.51); Lymphocyte % 4.1 % (19-41); Mean Corp Hgb Conc 32.4 g/dL (32-36); Mean Corpuscular Hgb 32.1 pg (27.0-32.0); Mean Platelet Vol. 10.9 fl (6.2-12.0); Monocyte# 0.47 X10^3/uL; Monocyte% 3.1 % (0-10); NRBC Flagged by Analyzer 0 % (0-5); Neutrophil # 13.51 X10^3/uL (2.7-7.7); Neutrophil % 89.4 % (47-70); Platelet Count 162 K/mm3 (150-450); RBC Distribution Width CV 14.6 % (11.6-14.6); RBC Distribution Width SD 53.1 fl (35.1-43.9); Red Blood Count 3.12 M/mm3 (4.6-6.2); White Blood Count 15.1 K/mm3 (4.4-11.0)
[2023-10-18 08:37] LABS: Anion Gap 9 (5-15); BUN 27 mg/dL (7-18); BUN/Creat Ratio 22.3 RATIO (10-20); Calcium,Total 8.5 mg/dL (8.5-10.1); Chloride 109 mmol/L (98-107); Creatinine, Serum 1.21 mg/dL (0.70-1.30); EST Glomerular Filtration Rate 62 mL/min (>60); Est Glom Filt Rate - Afr Amer 75 mL/min (>60); Glucose 88 mg/dL (74-106); Potassium 2.9 mmol/L (3.5-5.1); Sodium Level 140 mmol/L (136-145)
--- NOTE | 2023-10-18 08:42 | PN.HOSP_ITS ---
Reason for Visit Reason for Visit: Diagnoses Pneumonia, unspecified organism (10/17/23) Subjective Subjective Has been having diarrhea since May when he finishes radiation and chemotherapy. Has not sought treatment for this but was advised by his oncologist to follow-up with his primary care doctor but the patient did not have 1. Objective Data Objective Data Vital Signs: Vital Signs Temp Pulse Resp BP Pulse Ox O2 Del Method 37.0 C 85 17 94/60 99 Room Air 10/18/23 03:46 10/18/23 07:17 10/18/23 07:17 10/18/23 03:46 10/18/23 07:17 10/18/23 07:17 Oxygen Delivery Method Room Air Weight: 60.056 kg Body Mass Index (BMI) 20.7 Intake & Output: Intake and Output for Last 24 Hours 10/16/23 10/17/23 10/18/23 23:59 23:59 23:59 Intake Total 2665 / 2665 200 / 200 Output Total 640 / 640 Balance 2024 / 2024 200 / 200 Lab / Micro Data 10/18/23 07:15 10/18/23 07:15 Labs: Laboratory Results - last 24 hr 10/17/23 05:30: Magnesium 2.0, Total Creatine Kinase 19 L 10/17/23 11:15: PT 17.2 H, INR 1.4, APTT 39.1 H, Lactic Acid 1.4 10/18/23 07:15: WBC 15.1 H, RBC 3.12 L, Hgb 10.0 L, Hct 30.9 L, MCV 99.0 H, MCH 32.1 H, MCHC 32.4, RDW Std Deviation 53.1 H, RDW Coeff of [place]illiana 14.6, Plt Count 162, MPV 10.9, Immature Gran % (Auto) 2.200 H, Neut % (Auto) 89.4 H, Lymph % (Auto) 4.1 L, [place] % (Auto) 3.1, Eos % (Auto) 0.9, Baso % (Auto) 0.3, Absolute Neuts (auto) 13.5 H, Absolute Lymphs (auto) 0.62 L, Nucleated RBC % 0, Sodium 140, Potassium 2.9 L, Chloride 109 H, Carbon Dioxide 22.0, Anion Gap 9, BUN 27 H , Creatinine 1.21, Estim Creat Clear Calc 45.50, Est GFR (MDRD) Af Amer 75, Est GFR (MDRD) Non-Af 62, BUN/Creatinine Ratio 22.3 H, Glucose 88, Calcium 8.5 Micro: Microbiology 10/17/23 13:10 Mucosa - Nose Respiratory Panel (PCR) - Final 10/17/23 21:07 Stool Enteric Bacteriology - Final 10/18/23 00:00 Urine, Clean Catch Legionella Antigen - Final 10/18/23 00:00 Urine, Clean Catch Streptococcus pneumoniae Antigen (M - Final 10/17/23 21:07 Stool C. difficile GDH Antigen & Toxins - Final 10/17/23 21:07 Stool Clostridioides difficile (PCR) - Final 10/17/23 21:07 Stool Stool Lactoferrin - Final 10/17/23 21:07 Stool Stool Occult Blood (GABRIEL) - Final 10/17/23 05:34 Mucosa - Nose SARS-CoV-2, Influenza & RSV (PCR) - Final Radiography Diagnostic Testing: Radiology Impression Chest X-Ray 10/17/23 05:11 IMPRESSION: Large area of consolidation in the right midlung consistent with pneumonia probably in the superior segment of the right lower lobe in posterior and anterior segments of the right upper lobe. Electronically Signed: Saturnino Wallace MD at 6:30 EDT , Physical Exam Const alert and no apparent distress Constitutional Narrative: Cachectic HEENT head/scalp atraumatic and moist oral mucous membranes Resp normal respiratory effort, no retractions, no use of accessory muscles and clear to auscultation bilaterally Cardio regular rate, regular rhythm, S1 normal heart sound and S2 normal heart sound GI normal to inspection, nondistended, normoactive bowel sounds and soft to palpation Neuro Sensorium / Orientation: awake and alert Assessment & Plan Assessment/Plan (1) Community acquired pneumonia: QUALIFIERS: Laterality: right Lung location: lower lobe of lung Qualified Code(s): J18.9 - Pneumonia, unspecified organism PLAN: Plan Suspected gram negative pneumonia * RML pneumonia * abx w vanc and pip/tazo * resp panel, COVID 19, influenza, RSV, strep and legionella antigens negative. Check sputum culture * PEP therapy Chronic diarrhea * C. difficile toxins and antigen negative, however the positive PCR. Notes I suspect the patient does not have active C. difficile I would like to treat him as he is currently on antibiotics and could be at risk for develop C. difficile. Patient is high risks given his immunocompromise status and having undergone chemo therapy. * Patient will be on oral vancomycin for 10 days. Chronic conditions: * History of throat cancer completed chemoradiation on June 01, [address] Alcantar: As per his PET scan in September was good. He is in remission. * History of osteoporosis: Not on bisphosphonate. DVT prophylaxis with history of DVT in the past: Patient not on anticoagulant. Lovenox 40 mg subcu daily. Code: full. Greater than 55 minutes of which greater than 50% time was counseling the patient and his at bedside about his C. difficile results and the fact that it is not definitively positive but concerned that he could be at risk for developing C. difficile and would elect to treat him with vancomycin. Also explained that we would not be initiating any Imodium at this time for concern for C. difficile though the risk may be low. Charges/Coding Visit Charges Inpatient E&M: 46410 Subs Hosp L3
[2023-10-18] MEDS: guaiFENesin/D-Methorphan TAB.SR.12H 2 TABLET PO ×2 (10:27→22:01)
[2023-10-18] MEDS: Vancomycin IV 500 MG/100 ML BAG 100 MG IV (10:27)
[2023-10-18] MEDS: Enoxaparin 40 MG/0.4 ML Syringe SC (10:28)
[2023-10-18] MEDS: Potassium Chloride Oral Tablet 20 MEQ 60 MEQ PO (11:01)
[2023-10-18] MEDS: Loperamide 2 MG Capsule PO (12:26)
--- NOTE | 2023-10-18 12:42 | CHAPLAIN ---
Type of Pastoral Visit _x__ Initial Visit ___ Follow-up Visit ___ On-call Visit ___ General Patient Visit ___ Spiritual Assessment ___ Family Conference ___ Bereavement ___ Rapid Response ___ Code Blue ___ Other (describe below) Pastoral Care Referral From _x__ Patient ___ Family ___ Nurse ___ Physician ___ Paint Spraying Machine Operator Helper ___ Pci Security Consultant ___ Other (describe below) Sacrament/Intervention _x__ Active listening ___ Anointing ___ Yarsanism ___ Bereavement ___ Communion _x__ Shannon exploration ___ ___ Life review _x__ Prayer ___ Reconciliation ___ Sacrament of Sick _x__ Supportive presence ___ Wedding ___ Other (describe below) Pastoral Comments patient and spouse are in the room; RN is just leaving; pt and spouse speak of his healing from cancer and the completion of his treatments; pt gives thanks to God for this outcome; concern now is the pneumonia and difficulty with swallowing which have resulted from his treatments per pt's claim; both are welcoming of presence and support offered; prayer is welcomed; pt is dealing with decisions about more testing and decides that it is too much for me to go through now; pt wants to have time to recover and to leave it in God's hands;
--- NOTE | 2023-10-18 12:47 | CASEMGMT ---
WILLIAM ESCOBAR Assessment Face to Face with patient for initial transition planning/care coordination assessment. RN CM introduced self and role at [facility], pt voices understanding. Pt is A&Ox4 and is resting comfortably in bed and is calm. Pt at bedside. Care providers, pharmacy, and demographics verified. Admitting dx: Pneumonia PCP:No PCP. Pt declined this WILLIAM ESCOBAR PCP list Specialists: denies Preferred Pharmacy: [facility] Insurance: [facility] Prescription Benefit: Yes LNOK: Veronica Gonzalez Living Arrangements: Pt lives with his in a mobile home with 4 steps to enter with a HR with no issues ADLs/IADLs: Ind Transportation: Self, DME: Cane and walker at home but does not use. BP Cuff. Pt denies all other DME uses or needs. Pt is currently 98% on RA. HHC/SNF: denies history or needs Pt?s goal: Home no needs. Plan: 6-Click is 23. Pt was cleared by PT. Pt and pt canceled the MBSS as they feel the pt did not need it. Pt states that he feels safe and comfortable DC home with no additional needs at this time. CM to follow for safe DC home. Yaima Tay RN, CM
[2023-10-18] MEDS: Vancomycin 125 MG/5 ML Susp PO.SYRINGE PO ×2 (13:52→17:20)
[2023-10-18] MEDS: Vancomycin Trough/Random Due 1 LAB MC (22:14)
[2023-10-18 22:32] LABS: Vancomycin, Trough Level 12.3 ug/mL (5.0-15.0)
[2023-10-18] MEDS: Vancomycin HCl 750 MG in 0.9% Normal Saline (250mL Bag) 250 ML 250 MG IV (23:00)
[2023-10-18] MEDS: 0.9% Saline Lock 10 ML Syringe IV (23:00)
--- NOTE | 2023-10-18 23:07 | PCM.RX.CS ---
Consult Antibiotic Management Pharmacy has been consulted to manage selected antibiotic: Vancomycin Type of Intervention Type of Consult: Follow-up Suspected Infection Suspected Infection: Pneumonia Labs Labs: Sodium 140 mmol/L (136-145) 10/18/23 07:15 Potassium 2.9 mmol/L (3.5-5.1) L 10/18/23 07:15 Chloride 109 mmol/L (98-107) H 10/18/23 07:15 Carbon Dioxide 22.0 mmol/L (21.0-32.0) 10/18/23 07:15 Anion Gap 9 (5-15) 10/18/23 07:15 BUN 27 mg/dL (7-18) H 10/18/23 07:15 Creatinine 1.21 mg/dL (0.70-1.30) 10/18/23 07:15 Est GFR (MDRD) Af Amer 75 mL/min (>60) 10/18/23 07:15 Est GFR (MDRD) Non-Af 62 mL/min (>60) 10/18/23 07:15 BUN/Creatinine Ratio 22.3 RATIO (10-20) H 10/18/23 07:15 Glucose 88 mg/dL (74-106) 10/18/23 07:15 Vancomycin Trough 12.3 ug/mL (5.0-15.0) 10/18/23 22:10 Microbiology Microbiology: Microbiology 10/17/23 13:10 Mucosa - Nose Respiratory Panel (PCR) - Final 10/17/23 21:07 Stool Enteric Bacteriology - Final 10/18/23 00:00 Urine, Clean Catch Legionella Antigen - Final 10/18/23 00:00 Urine, Clean Catch Streptococcus pneumoniae Antigen (M - Final 10/17/23 21:07 Stool C. difficile GDH Antigen & Toxins - Final 10/17/23 21:07 Stool Clostridioides difficile (PCR) - Final 10/17/23 21:07 Stool Stool Lactoferrin - Final 10/17/23 21:07 Stool Stool Occult Blood (GABRIEL) - Final 10/17/23 05:34 Mucosa - Nose SARS-CoV-2, Influenza & RSV (PCR) - Final Dosing Weight Weight used for dosin kg Estimated Creatinine Clearance Estimated Creatinine Clearance: 45.5 Goal Trough Goal Trough: 15-20 mcg/mL Pharmacy Plan for Drug Dosing Pharmacy Plan for Drug Dosing: Vancomycin trough level of 12.3, drawn 11.6hrs post-dose, was below the target range of 15-20. Will increase dose to 750mg q12h, and will draw another trough prior to fourth dose of the new regimen. Pharmacy Service will continue to monitor and adjust dosing as required. Follow-Up Labs Follow-Up Labs: Trough: Vancomycin Date/Time Labs Ordered Labs to be done on [date and time ordered]: 10/20/23 @9481
[2023-10-19] MEDS: Vancomycin 125 MG/5 ML Susp PO.SYRINGE PO ×2 (00:27→06:12)
[2023-10-19 02:36] VITALS: BP 125/71; PULSE 82; RESP 16; TEMP 36.9; O2SAT 99
[2023-10-19] MEDS: 0.9% Saline Lock 10 ML Syringe IV (06:12)
[2023-10-19] MEDS: Piperacil/Tazobactam 3.375 GM in 0.9% Normal Saline (50mL MB+) 50 ML IV (06:14)
[2023-10-19 06:34] LABS: Absolute Lymphocyte Count 0.57 X10^3/uL (0.83-4.51); Absolute Neutrophil Count 8.6 X10^3/uL (2.0-7.7); Basophil# 0.04 X10^3/uL; Basophil% 0.4 % (0-1); Eosinophil# 0.45 X10^3/uL; Eosinophils% 4.4 % (0-5); Hematocrit 32.1 % (40-54); Hemoglobin 10.4 g/dL (13.0-16.5); Lymphocyte # 0.57 X10^3/ul (0.83-4.51); Lymphocyte % 5.5 % (19-41); Mean Corp Hgb Conc 32.4 g/dL (32-36); Mean Corpuscular Hgb 31.9 pg (27.0-32.0); Mean Corpuscular Volume 98.5 fL (80-94); Mean Platelet Vol. 10.3 fl (6.2-12.0); Monocyte# 0.53 X10^3/uL; Monocyte% 5.1 % (0-10); NRBC Flagged by Analyzer 0 % (0-5); Neutrophil # 8.61 X10^3/uL (2.7-7.7); Neutrophil % 83.5 % (47-70); POSITIVE DIFFERENTIAL YES; Platelet Count 188 K/mm3 (150-450); RBC Distribution Width CV 14.6 % (11.6-14.6); RBC Distribution Width SD 53.2 fl (35.1-43.9); Red Blood Count 3.26 M/mm3 (4.6-6.2); White Blood Count 10.3 K/mm3 (4.4-11.0)
[2023-10-19 07:07] LABS: Anion Gap 6 (5-15); BUN 26 mg/dL (7-18); BUN/Creat Ratio 24.8 RATIO (10-20); Calcium,Total 8.6 mg/dL (8.5-10.1); Chloride 116 mmol/L (98-107); Creatinine, Serum 1.05 mg/dL (0.70-1.30); EST Glomerular Filtration Rate 73 mL/min (>60); Est Glom Filt Rate - Afr Amer 89 mL/min (>60); Estimated Creatinine Clearance 52.43 ml/min; Glucose 83 mg/dL (74-106); Potassium 3.9 mmol/L (3.5-5.1); Sodium Level 141 mmol/L (136-145)
[2023-10-19 07:22] VITALS: PULSE 91; RESP 18; O2SAT 98
[2023-10-19] MEDS: Ipratropium/Albuterol Sulfate 3 ML AMPUL.NEB INHALATION ×2 (07:22→10:41)
--- NOTE | 2023-10-19 07:36 | PN.HOSP_ITS ---
Reason for Visit Reason for Visit: Diagnoses Pneumonia, unspecified organism (10/17/23) Subjective Subjective Diarrhea doing better. Objective Data Objective Data Vital Signs: Vital Signs Temp Pulse Resp BP Pulse Ox O2 Del Method 36.9 C 82 16 125/71 H 99 Room Air 10/19/23 02:36 10/19/23 02:36 10/19/23 02:36 10/19/23 02:36 10/19/23 02:36 10/19/23 02:36 Oxygen Delivery Method Room Air Weight: 60.056 kg Body Mass Index (BMI) 20.7 Intake & Output: Intake and Output for Last 24 Hours 10/17/23 10/18/23 10/19/23 23:59 23:59 23:59 Intake Total 2665 / 2665 520 / 520 365 / 365 Output Total 640 / 640 250 / 250 Balance 2024 / 2024 270 / 270 365 / 365 Lab / Micro Data 10/19/23 06:15 10/19/23 06:15 Labs: Laboratory Results - last 24 hr 10/18/23 07:15: WBC 15.1 H, RBC 3.12 L, Hgb 10.0 L, Hct 30.9 L, MCV 99.0 H, MCH 32.1 H, MCHC 32.4, RDW Std Deviation 53.1 H, RDW Coeff of Lilliana 14.6, Plt Count 162, MPV 10.9, Immature Gran % (Auto) 2.200 H, Neut % (Auto) 89.4 H, Lymph % (Auto) 4.1 L, Jewell % (Auto) 3.1, Eos % (Auto) 0.9, Baso % (Auto) 0.3, Absolute Neuts (auto) 13.5 H, Absolute Lymphs (auto) 0.62 L, Nucleated RBC % 0, Sodium 140, Potassium 2.9 L, Chloride 109 H, Carbon Dioxide 22.0, Anion Gap 9, BUN 27 H , Creatinine 1.21, Estim Creat Clear Calc 45.50, Est GFR (MDRD) Af Amer 75, Est GFR (MDRD) Non-Af 62, BUN/Creatinine Ratio 22.3 H, Glucose 88, Calcium 8.5 10/18/23 22:10: Vancomycin Trough 12.3 10/19/23 06:15: WBC 10.3, RBC 3.26 L, Hgb 10.4 L, Hct 32.1 L, MCV 98.5 H, MCH 31.9, MCHC 32.4, RDW Std Deviation 53.2 H, RDW Coeff of Lilliana 14.6, Plt Count 188, MPV 10.3, Immature Gran % (Auto) 1.100 H, Neut % (Auto) 83.5 H, Lymph % (Auto) 5.5 L, Jewell % (Auto) 5.1, Eos % (Auto) 4.4, Baso % (Auto) 0.4, Absolute Neuts (auto) 8.6 H, Absolute Lymphs (auto) 0.57 L, Nucleated RBC % 0, Sodium 141, Potassium 3.9, Chloride 116 H, Carbon Dioxide 19.0 L, Anion Gap 6, BUN 26 H, Creatinine 1.05, Estim Creat Clear Calc 52.43, Est GFR (MDRD) Af Amer 89, Est GFR (MDRD) Non-Af 73, BUN/Creatinine Ratio 24.8 H, Glucose 83, Calcium 8.6 Micro: Microbiology 10/17/23 13:10 Mucosa - Nose Respiratory Panel (PCR) - Final 10/17/23 21:07 Stool Enteric Bacteriology - Final 10/18/23 00:00 Urine, Clean Catch Legionella Antigen - Final 10/18/23 00:00 Urine, Clean Catch Streptococcus pneumoniae Antigen (M - Final 10/17/23 21:07 Stool C. difficile GDH Antigen & Toxins - Final 10/17/23 21:07 Stool Clostridioides difficile (PCR) - Final 10/17/23 21:07 Stool Stool Lactoferrin - Final 10/17/23 21:07 Stool Stool Occult Blood (GABRIEL) - Final 10/17/23 05:34 Mucosa - Nose SARS-CoV-2, Influenza & RSV (PCR) - Final Physical Exam Const alert and no apparent distress Constitutional Narrative: cachectic. afebrile. Resp normal respiratory effort, no retractions, no use of accessory muscles and clear to auscultation bilaterally Cardio regular rate, regular rhythm, S1 normal heart sound and S2 normal heart sound GI normal to inspection, nondistended, normoactive bowel sounds, soft to palpation, non-tender and non-distended Assessment & Plan Assessment/Plan (1) Community acquired pneumonia: QUALIFIERS: Laterality: right Lung location: lower lobe of lung Qualified Code(s): J18.9 - Pneumonia, unspecified organism PLAN: Plan Suspected gram negative pneumonia * RML pneumonia * abx w vanc and pip/tazo in the hospital. Will discharge with Augmentin. Patient already has an unopened bottle of Augmentin as recently prescribed to him. Told him instead of using the 10-day course as already prescribed, to use it 7 days. He also had a prescription for azithromycin. I told him to hold off on taking that at this time. * resp panel, COVID 19, influenza, RSV, strep and legionella antigens negative. Check sputum culture * PEP therapy Chronic diarrhea * Improved. Unclear if true C. diff, but will continue to treat with PO vancomycin for 10 days. Advised patient and his that it is possible if this is truly C diff that he could continue to get better with vancomycin and should get worse in a couple weeks as this may be an issue regards to spores that c. difficile produces. * C. difficile toxins and antigen negative, however the positive PCR. Notes I suspect the patient does not have active C. difficile I would like to treat him as he is currently on antibiotics and could be at risk for develop C. difficile. Patient is high risk given his immunocompromise status and having undergone chemo therapy. * Patient will be on oral vancomycin for 10 days. * Giardia pending, seems unlikely as patient has not really suddenly been doing any kind outdoors activity. Check TTG. Patient to follow-up with his PCP when he gets established on the TTG. Chronic conditions: * History of throat cancer completed chemoradiation on June 01, [address] Alcantar: As per his PET scan in September was good. He is in remission. * History of osteoporosis: Not on bisphosphonate. Discussed with patient's at bedside.
[2023-10-19 09:05] VITALS: BP 106/63; PULSE 81; RESP 16; TEMP 36.4; O2SAT 97
[2023-10-19] MEDS: guaiFENesin/D-Methorphan TAB.SR.12H 2 TABLET PO (09:12)
[2023-10-19] MEDS: Enoxaparin 40 MG/0.4 ML Syringe SC (09:12)
--- NOTE | 2023-10-19 10:21 | DS.PCM_ITS ---
Providers Date of Admission: 10/17/23 Primary Care Physician: No Primary Care Phys Reason For Visit: MULTIFOCAL PNEUMONIA Diagnosis Discharge Diagnosis (1) Community acquired pneumonia: Status: Acute Code(s): J18.9 - Pneumonia, unspecified organism Qualifiers: Laterality: right Lung location: lower lobe of lung Qualified Code(s): J18.9 - Pneumonia, unspecified organism Plan Suspected gram negative pneumonia * RML pneumonia * abx w vanc and pip/tazo in the hospital. Will discharge with Augmentin. Patient already has an unopened bottle of Augmentin as recently prescribed to him. Told him instead of using the 10-day course as already prescribed, to use it 7 days. He also had a prescription for azithromycin. I told him to hold off on taking that at this time. * resp panel, COVID 19, influenza, RSV, strep and legionella antigens negative. Check sputum culture * PEP therapy Chronic diarrhea * Improved. Unclear if true C. diff, but will continue to treat with PO vancomycin for 10 days. Advised patient and his that it is possible if this is truly C diff that he could continue to get better with vancomycin and should get worse in a couple weeks as this may be an issue regards to spores that c. difficile produces. * C. difficile toxins and antigen negative, however the positive PCR. Notes I suspect the patient does not have active C. difficile I would like to treat tucker joseph as he is currently on antibiotics and could be at risk for develop C. difficile. Patient is high risk given his immunocompromise status and having undergone chemo therapy. * Patient will be on oral vancomycin for 10 days. * Giardia pending, seems unlikely as patient has not really suddenly been doing any kind outdoors activity. Check TTG. Patient to follow-up with his PCP when he gets established on the TTG. Chronic conditions: * History of throat cancer completed chemoradiation on June 01, [address] Alcantar: As per his PET scan in September was good. He is in remission. * History of osteoporosis: Not on bisphosphonate. Discussed with patient's at bedside. Medications at Discharge Home Medications Lactobacillus acidophilus 10 billion cell capsule (Probacap) 100 mmu cells PO DAILY 10/17/23 amoxicillin 875 mg-potassium clavulanate 125 mg tablet 875 mg (0.875 x 875-125 mg) PO Q12H #20 TABLETS 10/17/23 guaifenesin 600 mg tablet, extended release 12 hr (Mucinex) 600 mg PO BID #14 tabs 10/19/23 vancomycin 25 mg/mL oral solution (Firvanq) 125 mg (5 mL) PO Q6 10 days #200 mL 10/19/23 Hospital Course Operations None Procedures None Summary of Care Provided Minutes Spent on Discharge: 40 Hospital Course: Patient was sick for 2 days prior to arrival presented to the emergency room. Patient was found to have right upper and right middle lobe pneumonia. Patient started on broad-spectrum antibiotics in the hospital with vancomycin and pip- tazo. Patient remained stable from a respiratory standpoint. Over the past several months, after finishing chemo and radiation for his throat cancer, patient has been having diarrhea. It can be intermittent but sometimes described as [place]. He did have some preliminary workup for enteric pathogen that was negative. Patient C. difficile showed negative toxin and antigen but did have a positive PCR. Given his immunocompromise state, I did elect to treat him for C. difficile with vancomycin. I did observe the patient overnight and he is reporting that he has had improvement of the frequency of his diarrhea. It is unclear if this is an effect of the vancomycin or not but I would not have him continue to be treated for C. difficile for 10 days. I did order a TTG to evaluate for celiac, that is pending at this time. Patient will be discharged. He already has a prescription for Augmentin which she will continue and he will have a prescription for vancomycin. Patient advised to return if he is feeling worse. Additionally, patient had issues regards to swallowing post his radiation treatment for his throat cancer. Patient will follow-up speech therapy as outpatient. Weight / BMI Weight Weight: 60.056 kg Body Mass Index (BMI) 20.7 ABG / Lab / Microbiology Data 10/19/23 06:15 10/19/23 06:15 Laboratory: Laboratory Results - last 24 hr 10/18/23 22:10: Vancomycin Trough 12.3 10/19/23 06:15: WBC 10.3, RBC 3.26 L, Hgb 10.4 L, Hct 32.1 L, MCV 98.5 H, MCH 31.9, MCHC 32.4, RDW Std Deviation 53.2 H, RDW Coeff of Lilliana 14.6, Plt Count 188, MPV 10.3, Immature Gran % (Auto) 1.100 H, Neut % (Auto) 83.5 H, Lymph % (Auto) 5.5 L, [place] % (Auto) 5.1, Eos % (Auto) 4.4, Baso % (Auto) 0.4, Absolute Neuts (auto) 8.6 H, Absolute Lymphs (auto) 0.57 L, Nucleated RBC % 0, Sodium 141, Potassium 3.9, Chloride 116 H, Carbon Dioxide 19.0 L, Anion Gap 6, BUN 26 H, Creatinine 1.05, Estim Creat Clear Calc 52.43, Est GFR (MDRD) Af Amer 89, Est GFR (MDRD) Non-Af 73, BUN/Creatinine Ratio 24.8 H, Glucose 83, Calcium 8.6 Microbiology: Microbiology 10/17/23 05:30 Blood Culture (Wb) - Right Hand Blood Culture - Preliminary No growth in 48 hours. 10/17/23 07:35 Blood Culture (Wb) - Anticubital Left Blood Culture - Preliminary No growth in 48 hours. 10/17/23 13:10 Mucosa - Nose Respiratory Panel (PCR) - Final 10/17/23 21:07 Stool Enteric Bacteriology - Final 10/18/23 00:00 Urine, Clean Catch Legionella Antigen - Final 10/18/23 00:00 Urine, Clean Catch Streptococcus pneumoniae Antigen (M - Final 10/17/23 21:07 Stool C. difficile GDH Antigen & Toxins - Final 10/17/23 21:07 Stool Clostridioides difficile (PCR) - Final 10/17/23 21:07 Stool Stool Lactoferrin - Final 10/17/23 21:07 Stool Stool Occult Blood (GABRIEL) - Final 10/17/23 05:34 Mucosa - Nose SARS-CoV-2, Influenza & RSV (PCR) - Final D/C Instructions Discharge Diet: No restrictions Meaningful Use Info Meaningful Use Diagnoses (Choose all that apply): None applicable Discharge Plan Admission Admit Date/Time: 10/17/23 10:16 Primary Reason for Your Visit: Pneumonia Attending Provider: Geoffrey Whiteside Primary Care Provider: Care Physician,No Primary Consulting Providers: Jameel Reaves Instructions Patient Instructions: ED Pneumonia (Adult) Additional Instructions / Restrictions: Continue taking the Augmentin (amoxicillin/clavulanic acid) for total of 7 days. You do not need to take the azithromycin. As we mentioned it is concerning that you may have C. difficile but the testing was not conclusive. We did mention that you did feel better after taking the vancomycin. Unsure if it was really due to the vancomycin or not but I would recommend continue taking the vancomycin for 10 days. I did order a test called TTG, which evaluates for celiac disease. This is a send out and you will need to follow the primary care doctor to see if you do have underlying celiac disease. Speech therapy recommending swallowing exercises which they provided. Additionally should follow-up with speech therapy as outpatient. Follow-up with your cancer doctor at neck scheduled appointment. Discharge Orders/Prescriptions Prescriptions: New amoxicillin-pot clavulanate [amoxicillin-pot clavulanate] 875-125 mg tablet 875 mg PO Q12H Qty: 20 0RF vancomycin [Firvanq] 25 mg/mL Recon Soln 125 mg PO Q6 10 Days Qty: 200 0RF guaifenesin [Mucinex] 600 mg tablet extended release 12hr 600 mg PO BID Qty: 14 0RF Continued Probacap 10 billion cell capsule 100 mmu cells PO DAILY Other Ambulatory Orders: Speech Therapy Evaluation (Routine) Location: None Selected Ordered By: Dr. Geoffrey Whiteside Referrals / Follow Up: Severo Richards MD [Med Staff - [facility]] - As soon as possible Care Physician,No Primary [Primary Care Provider] - Disposition Disposition (needs filled in before D/C Order can be placed): Home, Self Care Charges/Coding Visit Charges Inpatient E&M: 12221 Disch Hosp >30min
--- NOTE | 2023-10-19 10:41 | CASEMGMT ---
RN SHAWN NOTE: Pt being discharged. Script for OP ST obtained from Dr Whiteside. RN CM to room. Introduced self to pt and . They are aware pt is discharging home today and state they are tickled. Discussed OP ST and they state would like pt to go to [facility]. provided w/script and RN CM also faxed it to [facility] per request. RN SHAWN offered to call [facility] to schedule an appt, but [facility] Call placed to Kely @ [facility]. She was made aware pt would like [facility] to call to schedule OP ST appt. [facility] phone # also added to pt's discharge plan and pt/ made aware so they can call if needed. Pt and deny having other discharge planning needs/concerns/questions. Katherine FARRELL RN CM
--- NOTE | 2023-10-19 10:53 | PHA.DC_ITS ---
Pharmacy [facility] Pharmacy Service has performed discharge medication reconciliation and counseling for this patient. The patient's discharge medication list was reviewed for discrepancies and discrepancies were resolved. The patient was counseled on the following discharge medications and changes in medications for homegoing were reviewed. The Reason for Use, instructions for use, and potential side effects were reviewed for all new medications. The patient's questions regarding all of their medications were answered. 1. Augmentin 875 BID x 7 days 2. Vancomycin 125 mg PO Q6H x 10 days 3. Guaifenesin 600 mg PO BID x 7 days The patient's Debra was able to verbally demonstrate an understanding of their discharge medications. Medications at Discharge Home Medications Lactobacillus acidophilus 10 billion cell capsule (Probacap) 100 mmu cells PO DAILY 10/17/23 amoxicillin 875 mg-potassium clavulanate 125 mg tablet 875 mg (0.875 x 875-125 mg) PO Q12H #20 TABLETS 10/17/23 guaifenesin 600 mg tablet, extended release 12 hr (Mucinex) 600 mg PO BID #14 tabs 10/19/23 vancomycin 25 mg/mL oral solution (Firvanq) 125 mg (5 mL) PO Q6 10 days #200 mL 10/19/23
[2023-10-19 11:00] VITALS: PULSE 87; RESP 19
[2023-10-19 11:09] VITALS: BP 107/62; PULSE 82; RESP 16; TEMP 36.5; O2SAT 98
[2023-10-20 17:07] LABS: t-Transglutaminase IgA <2 U/mL (0-3)
[2023-10-23 16:10] LABS: Giardia Lamblia, Stool EIA Negative (Negative)
== END 2023-10-19 11:57 | disposition home or self-care (01) | DRG 178 ==
LOC: ED 10:05 → PCU 13:43
PROVIDERS: Admitting Provider Internal Medicine; Emergency Provider Emergency Medicine
DX: J15.69 Pneumonia due to other Gram-negative bacteria (principal); D84.9 Immunodeficiency, unspecified; K52.9 Noninfective gastroenteritis and colitis, unspecified; F17.290 Nicotine dependence, other tobacco product, uncomplicated; R13.19 Other dysphagia; Z85.21 Personal history of malignant neoplasm of larynx; Z86.718 Personal history of other venous thrombosis and embolism; I49.1 Atrial premature depolarization; Z79.899 Other long term (current) drug therapy
CPT/HCPCS: 36415; 71046; 80048; 80076; 80202; 81001; 82274; 82550; 83516; 83605; 83630; 83735; 85025; 85610; 85730; 87040; 87329; 87449; 87493; 87506; 87631; 87633; 92526; 92610; 93005; 94640; 94668; 94762; 96361; 96365; 96366; 96367; 96368; 96372; 97162; 97802; 99221; 99283; A4216; G0378

== ENCOUNTER 2023-10-22 13:41 | Inpatient (IN) | payer MEDICARE, SELFPAY ==
[2023-10-22] VITALS (10 sets, daily range): BP systolic 112–138; BP diastolic 59–95; PULSE 63–70; RESP 16–23; TEMP 36–36.9; O2SAT 98–100; BMI 20.4; BMI 19.9
--- NOTE | 2023-10-22 14:15 | EKG12_ITS ---
Test Reason : CHEST PAIN Blood Pressure : / mmHG Vent. Rate : 067 BPM Atrial Rate : 067 BPM P-R Int : 172 ms QRS Dur : 082 ms QT Int : 422 ms P-R-T Axes : 064 -10 071 degrees QTc Int : 445 ms Normal sinus rhythm ST & Abnormal ECG Confirmed by AUSTIN DONNELLY, RUEL ([id number]), editor school photograph DONATO MEEKS ([id number]) on 10/23/2023 7:58:06 AM Referred By: Confirmed By:RUEL AVILA MD
[2023-10-22] MEDS: Ondansetron 4 MG/2 ML Vial IV (14:22)
[2023-10-22] MEDS: Aspirin 81 MG TAB.CHEW 324 MG PO (14:22)
[2023-10-22] MEDS: Morphine 4 MG/ML Syringe IV (14:22)
[2023-10-22] MEDS: 0.9% Normal Saline (1000mL) 1,000 ML 1000 ML IV (14:23)
--- NOTE | 2023-10-22 14:28 | ED.VIS.CHEST ---
HPI History of Present Illness Chief Complaint: Chest Pain Informant: patient and spouse/S.O. Narrative Narrative: 72-year-old male presenting to the emergency room with acute onset of chest pain. Patient describes a significant pain anterior aspect of his upper chest that goes into his back. Nothing seems to make it better or worse. After it started the patient states that he was walking around his house did not seem to change his symptoms. Is been constant for about 1.5 hours before arrival in the department. No prior history of DVT or PE. No arm or leg symptoms that are new. Patient was recently admitted with pneumonia and discharged home a couple days ago. He is currently on Augmentin for this. He was seen at his oncologist office in [place] today where he was told he had a negative PET scan. 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 Patient also on vancomycin for C. difficile diarrhea. He states that is better but still continues. No change in swallowing at this time. Fevers have resolved. Patient notes dyspnea. He does not wear home oxygen. PFSH PFSH Medical History Cancer DVT (deep venous thrombosis) Kidney stones Osteoporosis Smoker Home Medications Lactobacillus acidophilus 10 billion cell capsule (Probacap) 100 mmu cells PO DAILY 10/17/23 [History Last Taken 10/22/23] amoxicillin 875 mg-potassium clavulanate 125 mg tablet 875 mg (0.875 x 875-125 mg) PO Q12H #20 TABLETS 10/17/23 [Rx Last Taken 10/22/23] guaifenesin 600 mg tablet, extended release 12 hr (Mucinex) 600 mg PO BID #14 tabs 10/19/23 [Rx Last Taken 10/22/23] vancomycin 25 mg/mL oral solution (Firvanq) 125 mg PO Q6H 10/22/23 [History Last Taken 10/22/23] Allergy/AdvReac Type Severity Reaction Status Date / Time No Known Allergies Allergy Verified 10/22/23 13:42 Surgical History H/O kidney removal Total knee replacement status Social History Smoking Status: Current every day smoker tobacco type: cigars ROS ROS ED Constitutional Constitutional ED: Denies chills, fever(s) or weight loss Eyes Eyes: Denies change in vision or diplopia ENT ENT ED: Denies ear pain, rhinorrhea or sore throat Cardiovascular Cardiovascular: Reports chest pain; Denies orthopnea, palpitations or racing heartbeat Respiratory/Chest Respiratory/Chest: Reports cough and dyspnea; Denies orthopnea Gastrointestinal Gastrointestinal: Denies abdominal pain, diarrhea, nausea or vomiting Genitourinary Genitourinary ED: Denies dysuria, hematuria or urinary frequency Musculoskeletal Musculoskeletal: Denies arthralgias or myalgias Integumentary Denies abscess or rash Neurologic Neurologic: Denies headache(s) or weakness Psychiatric Psychiatric: Denies anxiety, depression, suicidal ideation or suicidal thoughts Endocrine Endocrinology: Denies polydipsia, polyphagia or polyuria Allergic/Immunologic Allergic/Immunologic ED: Denies mouth swelling, tongue swelling or urticaria EXAM Physical Exam Narrative Exam Narrative: Patient appears uncomfortable laying in the bed. Const Vital Signs: 10/22/23 13:42 10/22/23 15:45 10/22/23 17:52 Temperature 96.8 F L Temperature Source Temporal Pulse Rate 68 67 64 Respiratory Rate 18 17 Blood Pressure 131/76 H 117/59 L 129/73 H Blood Pressure Mean 94 78 Pulse Ox 100 100 Oxygen Delivery Method Room Air 10/22/23 15:49 10/22/23 16:36 Temperature 97.9 F Temperature Source Oral Pulse Rate 66 63 Respiratory Rate 23 H 17 Blood Pressure 117/59 L 138/78 H Blood Pressure Mean 78 98 Pulse Ox 100 Oxygen Delivery Method Room Air Room Air Positive well nourished and well developed General Appearance ED: well developed HEENT Reports normocephalic, head/scalp atraumatic and moist mucous membranes Eyes PERRL and EOMs intact bilaterally Neck no lymphadenopathy, supple and no JVD Resp normal respiratory effort and clear to auscultation bilaterally Cardio regular rate, regular rhythm and no murmurs GI normal to inspection, nondistended, normoactive bowel sounds and non-tender Palpation: soft Back/Spine no CVA tenderness and normal ROM Extremity normal to inspection General Extremety ED: Negative for edema General Extremity: Negative for edema Neuro oriented x3 and CN's II-XII intact bilaterally Sensorium / Orientation: alert Motor Exam: strength 5/5 throughout Psych mental status grossly normal Mood & Affect: Negative for depressed or tearful Skin no rashes or lesions noted and no wounds MDM MDM MDM Narrative Medical decision making narrative: Patient is to receive morphine and Zofran for pain. Initial EKG does not show STEMI or any definitive features of ACS. There is however noted changes anteriorly compared to EKG dated 17 October 2023. His initial troponin returns at 18. Hemoglobin 11.6 white count 6.5 platelet count 251. Creatinine 1.13 glucose 132. CTA of the chest was obtained which is negative for pulmonary embolism or dissection. Noted changes consistent with his pneumonia. No pneumothorax or significant effusion noted. Patient continued to have pain and received a dose of Toradol. His pain is currently a 1 out of 10. Delta troponin returned significantly elevated at 510. Second EKG shows improvement of that ST segments anteriorly. I spoke with cardiology Dr. Rausch. Patient had previously received aspirin and recently was placed on a heparin drip and Nitropaste. Family and the patient were updated. Plan is admission to the hospital for probable heart cath tomorrow. History & Record Review Discussion w/independent historian: Patient and Family Additional record(s) reviewed:: Prior inpatient record, Prior ED visit and Prior labs Lab Data Attestation: I reviewed the patient's lab results. Labs: Laboratory Results - last 24 hr 10/22/23 10/22/23 14:10 16:34 WBC 6.5 RBC 3.53 L Hgb 11.6 L Hct 35.3 L MCV 100.0 H MCH 32.9 H MCHC 32.9 RDW Std Deviation 52.1 H RDW Coeff of [place] 14.3 Plt Count 251 MPV 11.0 Immature Gran % (Auto) 2.500 H Neut % (Auto) 67.2 Lymph % (Auto) 13.7 L [place] % (Auto) 11.7 H Eos % (Auto) 4.3 Baso % (Auto) 0.6 Absolute Neuts (auto) 4.4 Absolute Lymphs (auto) 0.89 Nucleated RBC % 0 PT 13.5 INR 1.0 APTT 23.2 L Sodium 140 Potassium 3.8 Chloride 114 H Carbon Dioxide 21.0 Anion Gap 5 BUN 26 H Creatinine 1.13 Est GFR (MDRD) Af Amer 81 Est GFR (MDRD) Non-Af 67 BUN/Creatinine Ratio 23.0 H Glucose 132 H Calcium 8.9 Troponin I High Sens 18 510 H* Radiography Diagnostic Testing: Clinical Impression(s) from Imaging Studies Chest CTA 10/22/23 14:49 IMPRESSION: Consolidation in the right upper lobe as well as right middle and right lower lobes. No evidence of pulmonary embolism. Electronically Signed: Christo Fuentes MD at 15:25 EDT , EKG Initial EKG: Attestation: I personally reviewed and interpreted this EKG as follows: Comments: Normal sinus rhythm with ventricular rate of [address]-T wave slight slurring anteriorly noted. Follow-up EKG: Attestation: I personally reviewed and interpreted this EKG as follows: Interpretation: Sinus Rhythm Comments: Normal sinus rhythm ventricular rate of 62 bpm. The changes noted anteriorly of the ST segments are improved. Differential Diagnosis Chest pain/SOB: pulmonary embolism, ACS, pneumothorax, pneumonia, aortic dissection and CHF Management Discussion w/another healthcare provider: Hospitalist and [employer] Critical Care Time Critical Care Time: Yes Critical care time (excluding procedures): 30-74 minutes (35 min), Including time spent:, Discussing w/Patient &/or Family/Second Baker, Discussing w/Consultants, Arranging Admission or Transfer and Performing Direct Patient Care at Bedside Discharge Plan Dx/Rx/DC Orders Clinical Impression: Diarrhea, ACS (acute coronary syndrome), Pneumonia Disposition Disposition: Acute Care [facility]
[2023-10-22 14:34] LABS: Absolute Lymphocyte Count 0.89 X10^3/uL (0.83-4.51); Absolute Neutrophil Count 4.4 X10^3/uL (2.0-7.7); Basophil# 0.04 X10^3/uL; Basophil% 0.6 % (0-1); Eosinophil# 0.28 X10^3/uL; Eosinophils% 4.3 % (0-5); Hematocrit 35.3 % (40-54); Hemoglobin 11.6 g/dL (13.0-16.5); Lymphocyte # 0.89 X10^3/ul (0.83-4.51); Lymphocyte % 13.7 % (19-41); Mean Corp Hgb Conc 32.9 g/dL (32-36); Mean Corpuscular Hgb 32.9 pg (27.0-32.0); Monocyte# 0.76 X10^3/uL; Monocyte% 11.7 % (0-10); NRBC Flagged by Analyzer 0 % (0-5); Neutrophil # 4.38 X10^3/uL (2.7-7.7); Neutrophil % 67.2 % (47-70); Platelet Count 251 K/mm3 (150-450); RBC Distribution Width CV 14.3 % (11.6-14.6); RBC Distribution Width SD 52.1 fl (35.1-43.9); Red Blood Count 3.53 M/mm3 (4.6-6.2); White Blood Count 6.5 K/mm3 (4.4-11.0)
--- NOTE | 2023-10-22 14:49 | CT_ITS ---
STUDY: CTA CHEST REASON FOR EXAM: Male, 72 years old. Chest pain pulmonary embolism RADIATION DOSAGE (If Supplied By Facility): CTDIvol = ( 8.02 ) mGy, DLP = ( 312.13 ) mGycm TECHNIQUE: The examination was performed with the intravenous administration of IV 100mL Isovue-370. Post-processing of the angiographic images was performed, with multiplanar reformation and 3D reconstruction. Individualized dose optimization techniques were used for this CT. COMPARISON: Comparison is made with prior chest radiograph dated December 17, 2023. FINDINGS: Normal enhancement of the main pulmonary artery and right and left pulmonary arteries. Normal enhancement of the bilateral peripheral pulmonary arteries. There is no demonstrated pulmonary embolism. There is atherosclerotic calcification of the aortic arch with tortuosity. There is no demonstrated aortic dissection. There are calcifications of the coronary arteries. Normal mediastinum. Normal hilar regions. Normal visualized trachea and bronchi. The lungs are well expanded. Patchy infiltrate in the peripheral lateral aspect of the right upper lobe abutting the right major fissure. Infiltration is also seen in the superior segment of the right lower lobe and the posterior segment of the right lower lobe. There is also evidence of focal infiltrate in the right middle lobe. Normal pleura. Normal chest wall structures. There are degenerative changes of thoracic spine. 1.2 cm fat-containing nodule in the left adrenal gland suggestive of adenoma. CT/CTA Chest W/WO Contrast IMPRESSION: Consolidation in the right upper lobe as well as right middle and right lower lobes. No evidence of pulmonary embolism. Electronically Signed: Christo Fuentes MD at 15:25 EDT ,
[2023-10-22 14:52] LABS: Anion Gap 5 (5-15); BUN 26 mg/dL (7-18); Calcium,Total 8.9 mg/dL (8.5-10.1); Chloride 114 mmol/L (98-107); Creatinine, Serum 1.13 mg/dL (0.70-1.30); EST Glomerular Filtration Rate 67 mL/min (>60); Est Glom Filt Rate - Afr Amer 81 mL/min (>60); Glucose 132 mg/dL (74-106); Potassium 3.8 mmol/L (3.5-5.1); Sodium Level 140 mmol/L (136-145); Troponin-I HS (w/2H Reflex) 18 pg/mL (3.0-78.0)
[2023-10-22] MEDS: Ketorolac 15 MG/ML Vial IV (15:20)
[2023-10-22 16:31] LABS: Reflex Troponin-HS? (from REC) Y
[2023-10-22 17:04] LABS: Troponin-I HS 510 pg/mL (3.0-78.0)
--- NOTE | 2023-10-22 17:17 | ED.RN ---
LAB CALLED TROPONIN OF 510. DR DUMONT
[2023-10-22 17:47] LABS: Partial Thromboplast Time 23.2 Seconds (24.1-36.2); Prothrombin Time (Protime)PT. 13.5 SECONDS (11.7-14.9)
[2023-10-22] MEDS: Heparin Injection (Vial) 5,000 UNIT/ML VIAL 4000 UNIT IV (17:48)
[2023-10-22] MEDS: HEPARIN/D5w 25,000 UNITS 25,000 UNITS/250 ML IV.SOLN. 8 UNITS CONT INF (17:52)
[2023-10-22] MEDS: Nitroglycerin 0.1 MG Patch TD (17:52)
--- NOTE | 2023-10-22 17:55 | HP.PCM.HOS_ITS ---
HPI - General General Date of Admission: 10/22/23 Date of Service: 10/22/23 Chief Complaint: Chest pain HPI Narrative RUIZ SANTOS, is a 72 M who presented to [facility] ED on 10/22/2023 with acute onset chest pain at rest. Patient seen at bedside in the ED, present. Patient was laying comfortably in bed, conversing normally, no acute distress. States that he had acute onset chest pain that radiated across his chest that started about noon today. Pain started at rest. He denies any radiation of pain into his arms or up into the neck. Has not had any pain like this before. States that he continued to have pain until he was given nitroglycerin on arrival to the ED. States that his pain is currently at about a 2 out of 10. He denies any lightheadedness or dizziness. He reports a mild nonproductive cough similar to what he had on discharge on 10/18 as noted below. Denies any abdominal pain or discomfort. 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 Denies any history of high blood pressure or high cholesterol. States his parents both had heart issues that started when they were both in their 70s to 80s. Patient otherwise denies any acute concerns at this time. Patient's past medical history is notable for a recent hospitalization at [facility] from 10/16-10/18. Presented at that time with fevers and worsening nonproductive cough. Was found on chest x-ray to have a suspected right-sided pneumonia, seemed to show some improvement with treatment with antibiotics. Patient also noted diarrhea on admission that have been ongoing since finishing his chemoradiation treatment for his oropharyngeal cancer back in May 2023. He was found to have a positive C. difficile PCR, though his C. difficile toxins and antigen were negative. Because of symptoms he was empirically treated with p.o. vancomycin. Patient states his diarrhea has shown moderate improvement since being treated with antibiotics. He also noted lower abdominal pain intermittently with the diarrhea and this pain is improving as well. He continues to have a mild nonproductive cough but denies any recent fevers or chills. 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 He completed chemoradiation therapy in May 2023, completed 6 weeks of radiation therapy (5 days per week) and 6 weeks of IV cisplatin once weekly. Follows with oncology at [facility]. Most recent PET scan in early September 2023 showed significant improvement of his cancer and he is currently in remission. PFSH Medical History Cancer DVT (deep venous thrombosis) Kidney stones Osteoporosis Smoker Home Medications Lactobacillus acidophilus 10 billion cell capsule (Probacap) 100 mmu cells PO DAILY 10/17/23 [History Last Taken 10/22/23] amoxicillin 875 mg-potassium clavulanate 125 mg tablet 875 mg (0.875 x 875-125 m g) PO Q12H #20 TABLETS 10/17/23 [Rx Last Taken 10/22/23] guaifenesin 600 mg tablet, extended release 12 hr (Mucinex) 600 mg PO BID #14 tabs 10/19/23 [Rx Last Taken 10/22/23] vancomycin 25 mg/mL oral solution (Firvanq) 125 mg PO Q6H 10/22/23 [History Last Taken 10/22/23] Allergy/AdvReac Type Severity Reaction Status Date / Time No Known Allergies Allergy Verified 10/22/23 13:42 Surgical History H/O kidney removal Total knee replacement status Social History Smoking Status: Current every day smoker tobacco type: cigars ROS Constitutional Constitutional: Denies chills, fatigue, fever(s) or weakness Eyes Eyes: Denies change in vision Cardiovascular Cardiovascular: Reports chest pain; Denies dyspnea on exertion, edema, lightheadedness, palpitations or rapid heart rate Respiratory/Chest Respiratory/Chest: Reports cough; Denies productive cough, shortness of breath at rest, shortness of breath with exertion or wheezing Gastrointestinal Gastrointestinal: Reports diarrhea; Denies abdominal pain, constipation, nausea or vomiting Genitourinary Genitourinary: Denies dysuria Musculoskeletal Musculoskeletal: Denies arthralgias, back pain or myalgias Neurologic Neurologic: Denies dizziness, focal weakness or headache(s) Vital Signs Vital Signs Vital Signs: 10/22/23 13:42 10/22/23 15:45 10/22/23 15:49 Temperature 96.8 F L Temperature Source Temporal Pulse Rate 68 67 66 Respiratory Rate 18 17 23 H Blood Pressure 131/76 H 117/59 L 117/59 L Blood Pressure Mean 94 78 78 Pulse Ox 100 100 Oxygen Delivery Method Room Air Room Air 10/22/23 16:36 Temperature 97.9 F Temperature Source Oral Pulse Rate 63 Respiratory Rate 17 Blood Pressure 138/78 H Blood Pressure Mean 98 Pulse Ox 100 Oxygen Delivery Method Room Air Weight Weight: 59.2 kg Body Mass Index (BMI) 20.4 Physical Exam Const alert, oriented x3 and no apparent distress Constitutional Narrative: Pleasant elderly male, thin and somewhat cachectic appearing, otherwise laying comfortably in bed, conversing normally, in no acute distress. General Appearance: cooperative and comfortable HEENT normocephalic, head/scalp atraumatic, hearing grossly normal bilaterally and nasal mucous membranes and turbinates normal HEENT Narrative: Poor dentition. Eyes PERRL, EOMs intact bilaterally and conjunctivae normal Neck full ROM Chest inspection of chest normal Resp normal respiratory effort and no use of accessory muscles Resp Narrative: Mild crackles noted in right mid to upper lung, otherwise good air movement throughout, no wheezing noted. Breathing comfortably on room air. Cardio regular rate, regular rhythm, no murmurs and peripheral pulses 2+ throughout GI normal to inspection, nondistended, normoactive bowel sounds, soft to palpation, non-tender and non-distended Back/Spine normal ROM Extremity normal to inspection, full ROM and no pedal edema Skin no rashes or lesions noted Neuro moves all extremities and no focal motor deficits Speech: speech normal Psych mental status grossly normal Results Lab / Micro Data 10/22/23 14:10 10/22/23 14:10 Labs: Laboratory Results - last 24 hr 10/22/23 14:10: WBC 6.5, RBC 3.53 L, Hgb 11.6 L, Hct 35.3 L, MCV 100.0 H, MCH 32.9 H, MCHC 32.9, RDW Std Deviation 52.1 H, RDW Coeff of [place] 14.3, Plt Count 251, MPV 11.0, Immature Gran % (Auto) 2.500 H, Neut % (Auto) 67.2, Lymph % (Auto) 13.7 L, [place] % (Auto) 11.7 H, Eos % (Auto) 4.3, Baso % (Auto) 0.6, Absolute Neuts (auto) 4.4, Absolute Lymphs (auto) 0.89, Nucleated RBC % 0, PT 13.5, INR 1.0, APTT 23.2 L, Sodium 140, Potassium 3.8, Chloride 114 H, Carbon Dioxide 21.0, Anion Gap 5, BUN 26 H, Creatinine 1.13, Est GFR (MDRD) Af Amer 81, Est GFR (MDRD) Non-Af 67, BUN/Creatinine Ratio 23.0 H, Glucose 132 H, Calcium 8.9, Troponin I High Sens 18 10/22/23 16:34: Troponin I High Sens 510 H* Imaging Radiology Impression Chest CTA 10/22/23 14:49 IMPRESSION: Consolidation in the right upper lobe as well as right middle and right lower lobes. No evidence of pulmonary embolism. Electronically Signed: Christo Fuentse MD at 15:25 EDT , Assessment & Plan Assessment/Plan (1) Non-STEMI (non-ST elevated myocardial infarction): PLAN: Plan Patient is a 72-year-old male who presented to [facility] ED on 10/22/2023 with chest pain. 1. NSTEMI ? Troponin trend of 18 > 510 on admit. EKG showed mild ST changes in V2 through V4 concerning for ischemia. ? CTA chest showed no PE, patchy infiltrates in the peripheral lateral aspect of right upper lobe, superior and posterior segments of the right lower lobe and also in the right middle lobe. ? No known history of high cholesterol or cardiac disease, but recent significant radiation therapy would place patient at high risk of coronary artery disease. ? Admit under inpatient status to the PCU. Cardiology consulted. N.p.o. at midnight with plan for left heart cath tomorrow. Lipid panel, A1c, TSH ordered. Echo ordered. Continue heparin drip that was started in the ED. Start aspirin 81 mg daily, atorvastatin 40 mg daily. 2. Recently diagnosed community-acquired pneumonia with unknown organism versus concern for radiation pneumonitis ? Chest x-ray on 10/16 showed large area of consolidation in the right midlung consistent with pneumonia. Treated with IV vancomycin and Zosyn while inpatient with some subjective improvement, discharged on Augmentin with plan to complete 7-day course of antibiotics total. ? CTA chest on 10/21 as noted above. ? Patient notably hemodynamically stable and satting in the high 90s on room air with no increased work of breathing noted. Does report mild continued nonproductive cough. ? Given the significant distribution of infiltrate and recent extensive radiation therapy, have concern that patient could have some degree of a radiation pneumonitis. Will hold on further antibiotics for now. Pulmonology consulted for further recommendations. 3. Chronic diarrhea with concern for C. difficile infection, improving ? Patient reported significant diarrhea for about 3 months after completing his chemoradiation therapy. Diarrhea notably not a common side effect with cispl atin therapy. Positive C. difficile PCR during last admission, though toxins and antigen were negative. Has had subjective improvement with p.o. vancomycin treatment. ? Continue p.o. vancomycin 4 times daily with plan to complete 10-day course of antibiotics total, stop date 10/26. Isolation precautions in place. 4. Recent history of throat cancer s/p chemoradiation therapy, now on remission ? Follows with Oncology, see HPI for further details. Most recent PET scan in early September shows remission of cancer. Continue outpatient follow-up. 5. Concern for nutrition ? BMI 19.9 on admit. Patient reportedly lost 20 to 25 pounds with his cancer and chemoradiation treatment. Fairly thin and cachectic appearing on exam. Nutrition consulted. 6. History of left nephrectomy, CKD stage III ? 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 Creatinine 1.13 on this admission, at baseline. Monitor daily BMP. Recommend limiting the amount of contrast given to the patient as able. DVT prophylaxis: Heparin drip CODE STATUS: Full code, verified Expected disposition: Home, 2 to 3 days Total clinical time spent by myself addressing the patient's medical issues, reviewing all the data, and collaborating with patient's care team: 55 minutes. Charges/Coding Visit Charges Inpatient E&M: 63516 Init Hosp L2
--- NOTE | 2023-10-22 17:58 | NURSING ---
DR AVILA IN ROOM
--- NOTE | 2023-10-22 18:00 | NURSING ---
DR KWAME RHOADES
--- NOTE | 2023-10-22 18:22 | PCM.CONS.C ---
Assessment & Plan Assessment/Plan (1) Non-STEMI (non-ST elevated myocardial infarction): PLAN: He presents with chest discomfort and is noted to have a non-ST elevation myocardial infarction. My recommendation at this time will be for us to start him on aspirin, intravenous heparin, and schedule him for left heart catheterization. The risk benefits alternatives have been explained to him he understands and agrees to proceed. He will also be started on low-dose beta-fredy High intensity statin An echocardiogram to assess his ventricular function especially as he has 1 kidney. Thank you for allowing me to participate in the care of your patient. Please don't hesitate to call if any issues arise. HPI Consult Data Date of Consult: 10/22/23 HPI Narrative HPI Narrative: RUIZ SANTOS, is a 72 M who presents with chest discomfort. He says that he was at home when the above happened and he was not particularly participating in any activity. He said that it was in the anterior part of his chest presented as a heaviness and radiating to his back. He was not diaphoretic and did not have any radiation to his jaw or neck or left arm. He however was concerned and decided to present to the emergency room and his initial EKG did not demonstrate any significant abnormalities. His troponin was however initially normal and follow-up troponin was noted to be markedly elevated. He is currently chest pain-free. Cardiology was called for further evaluation and management. 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 PFSH Medical History Cancer DVT (deep venous thrombosis) Kidney stones Osteoporosis Smoker Home Medications Lactobacillus acidophilus 10 billion cell capsule (Probacap) 100 mmu cells PO DAILY 10/17/23 [History Last Taken 10/22/23] amoxicillin 875 mg-potassium clavulanate 125 mg tablet 875 mg (0.875 x 875-125 mg) PO Q12H #20 TABLETS 10/17/23 [Rx Last Taken 10/22/23] guaifenesin 600 mg tablet, extended release 12 hr (Mucinex) 600 mg PO BID #14 tabs 10/19/23 [Rx Last Taken 10/22/23] vancomycin 25 mg/mL oral solution (Firvanq) 125 mg PO Q6H 10/22/23 [History Last Taken 10/22/23] Allergy/AdvReac Type Severity Reaction Status Date / Time No Known Allergies Allergy Verified 10/22/23 13:42 Surgical History H/O kidney removal Total knee replacement status Social History Smoking Status: Current every day smoker tobacco type: cigars ROS Constitutional Constitutional: Denies fever(s) or weight loss Eyes Eyes: Reports systems reviewed and no addt'l complaints, except as documented ENT HEENT: Reports systems reviewed and no addt'l complaints, except as documented Cardiovascular Cardiovascular: Reports chest pain at rest and dyspnea at rest; Denies chest pain with activity, dyspnea on exertion, edema, palpitations or paroxysmal nocturnal dyspnea Respiratory/Chest Respiratory/Chest: Denies dyspnea on exertion, productive cough, shortness of breath at rest or shortness of breath with exertion Gastrointestinal Gastrointestinal: Denies change in bowel habits, nausea, vomiting or weight changes Genitourinary Genitourinary: Denies difficulty urinating Musculoskeletal Musculoskeletal: Denies joint stiffness or muscle weakness Integumentary Integumentary: Denies lesions Neurologic Neurologic: Denies dizziness or syncope Psychiatric Psychiatric: Denies anxiety Endocrine Endocrinology: Denies excessive sweating or fatigue Hematologic/Lymphatic Hematologic/Lymphatic: Denies anemia Allergic/Immunologic Allergic/Immunologic: Denies seasonal rhinorrhea Physical Exam Const alert, oriented x3 and no apparent distress General Appearance: cooperative HEENT hearing grossly normal bilaterally Head and Scalp: atraumatic Eyes EOMs intact bilaterally Neck General: normal visual inspection Chest inspection of chest normal and palpation of chest normal Resp normal respiratory effort Auscultation: clear to auscultation bilaterally Cardio regular rate, regular rhythm, S1 normal heart sound and S2 normal heart sound Jugular Venous Distention: JVD GI normal to inspection, nondistended, normoactive bowel sounds Extremity normal capillary refill and no pedal edema Peripheral Pulses: Yes pulses 2+ throughout and femoral pulses present Skin no rashes or lesions noted Neuro oriented x3 and CN's II-XII intact bilaterally Psych Appearance: grossly normal and appropriate Risk Stratification Risk Stratification Applicable: Yes Age >/= 65: Yes >/= 3 CAD Risk Factors (HTN, HLD, DM, family hx of CAD, or current smoker): No Aspirin Use in the Past 7 Days: No Severe Angina (>/= episodes in 24 hours): Yes EKG ST Changes >/= 0.5mm: No Positive Cardiac Marker: Yes JOSY Risk Stratification Score: 3 JOSY % Risk: 13% Risk Objective Data Vital Signs: Vital Signs Temp Pulse Resp BP Pulse Ox O2 Del Method 97.9 F 64 17 129/73 H 100 Room Air 10/22/23 16:36 10/22/23 17:52 10/22/23 16:36 10/22/23 17:52 10/22/23 16:36 10/22/23 16:36 Oxygen Delivery Method Room Air Weight: 130 lb 8.218 oz Body Mass Index (BMI) 20.4 Intake & Output: Intake and Output for Last 24 Hours 10/20/23 10/21/23 10/22/23 23:59 23:59 23:59 Intake Total 1000 / 1000 Balance 1000 / 1000 Lab / Micro Data 10/22/23 14:10 10/22/23 14:10 Labs: Laboratory Results - last 24 hr 10/22/23 14:10: WBC 6.5, RBC 3.53 L, Hgb 11.6 L, Hct 35.3 L, MCV 100.0 H, MCH 32.9 H, MCHC 32.9, RDW Std Deviation 52.1 H, RDW Coeff of Lilliana 14.3, Plt Count 251, MPV 11.0, Immature Gran % (Auto) 2.500 H, Neut % (Auto) 67.2, Lymph % (Auto) 13.7 L, [place] % (Auto) 11.7 H, Eos % (Auto) 4.3, Baso % (Auto) 0.6, Absolute Neuts (auto) 4.4, Absolute Lymphs (auto) 0.89, Nucleated RBC % 0, PT 13.5, INR 1.0, APTT 23.2 L, Sodium 140, Potassium 3.8, Chloride 114 H, Carbon Dioxide 21.0, Anion Gap 5, BUN 26 H, Creatinine 1.13, Est GFR (MDRD) Af Amer 81, Est GFR (MDRD) Non-Af 67, BUN/Creatinine Ratio 23.0 H, Glucose 132 H, Calcium 8.9, Troponin I High Sens 18 10/22/23 16:34: Troponin I High Sens 510 H* Cardiology Labs/Tests 10/22/23 14:10: WBC 6.5, RBC 3.53 L, Hgb 11.6 L, Hct 35.3 L, MCV 100.0 H, MCH 32.9 H, MCHC 32.9, Plt Count 251, MPV 11.0, Immature Gran % (Auto) 2.500 H, Neut % (Auto) 67.2, Lymph % (Auto) 13.7 L, [place] % (Auto) 11.7 H, Eos % (Auto) 4.3, Baso % (Auto) 0.6, Absolute Neuts (auto) 4.4, Nucleated RBC % 0, PT 13.5, INR 1.0, APTT 23.2 L, Sodium 140, Potassium 3.8, Chloride 114 H, Carbon Dioxide 21.0, Anion Gap 5, BUN 26 H, Creatinine 1.13, Est GFR (MDRD) Af Amer 81, Est GFR (MDRD) Non-Af 67, BUN/Creatinine Ratio 23.0 H, Glucose 132 H, Calcium 8.9 Rhythm: EKG: ECHO: Stress Test: Cardiac Cath: PCI: CT Surgery: Holter monitor: EPS: PPM: CXR: Chest CT Scan: Radiography Diagnostic Testing: Radiology Impression Chest CTA 10/22/23 14:49 IMPRESSION: Consolidation in the right upper lobe as well as right middle and right lower lobes. No evidence of pulmonary embolism. Electronically Signed: Christo Fuentes MD at 15:25 EDT ,
--- NOTE | 2023-10-22 18:27 | ECHOLONC_ITS ---
Version 2 Reason For Study: CAD/ASHD Procedure This was a limited 2D transthoracic echocardiogram. Myocardial strain analysis was performed in this exam to aid in the assessment of cardiac function. Techincally difficult parasternal and subcostal window. Radial Cath 10/23/23. Exam performed portable in patient room. Left Ventricle Normal LV size. Left ventricular systolic function is normal. The estimated ejection fraction is 55 %. There are regional wall motion abnormalities as specified. Right Ventricle Normal RV size. Normal systolic function. Atria Normal left atrium. Normal right atrium. Mitral Valve Normal mitral valve. Mild (1+) eccentric mitral valve insufficiency. Tricuspid Valve Normal tricuspid valve. Aortic Valve Trisinus/trileaflet aortic valve. Pulmonic Valve Normal pulmonic valve. Great Vessels Normal aortic root. The pulmonary artery is normal size. Inferior vena cava collapse with respiration. Pericardium/Pleural No pericardial effusion. Medication No Definity, patient had a nephrectomy. MMode/2D Measurements & Calculations LVIDd: 4.4 cm IVSd: 0.89 cm LA dimension: 3.1 cm LVIDs: 3.4 cm LVPWd: 1.0 cm FS: 22.4 % LAV(MOD-bp): 36.2 ml LVAd ap4: 26.5 cm2 SV(MOD-sp4): 38.3 ml LAV(MOD-bp) Indexed: 21.8 ml/m2 LVLd ap4: 7.7 cm LAV(MOD-sp2): 38.1 ml EDV(MOD-sp4): 74.1 ml LAV(MOD-sp4): 30.8 ml EDV(sp4-el): 77.1 ml LVAs ap4: 15.9 cm2 LVLs ap4: 6.2 cm ESV(MOD-sp4): 35.9 ml ESV(sp4-el): 34.8 ml EF(MOD-sp4): 51.6 % EF(sp4-el): 54.9 % SV(sp4-el): 42.3 ml LA A4 area: 12.9 cm2 RA A4 area: 11.5 cm2 ECHO/ONC Echo, Limited Study Interpretation Summary Normal LV size. Left ventricular systolic function is normal. The estimated ejection fraction is 55 %. There are regional wall motion abnormalities as specified. The global longitudinal strain is normal. The global longitudinal strain = -20. 7 % (normal). Ordering Physician: Sebastian Rausch Performed By: Mark Martinez RCS
--- NOTE | 2023-10-22 19:40 | EKG12_ITS ---
Test Reason : REPEAT EKG Blood Pressure : / mmHG Vent. Rate : 062 BPM Atrial Rate : 062 BPM P-R Int : 170 ms QRS Dur : 082 ms QT Int : 454 ms P-R-T Axes : 068 -24 069 degrees QTc Int : 460 ms Normal sinus rhythm Nonspecific ST and T wave abnormality Abnormal ECG Confirmed by AUSTIN DONNELLY, RUEL ([id number]), features editor DONATO MEEKS ([id number]) on 10/23/2023 8:00:43 AM Referred By: Confirmed By:RUEL AVILA MD
[2023-10-22] MEDS: Metoprolol Tartrate 25 MG Tablet PO (20:51)
[2023-10-22] MEDS: guaiFENesin 600 MG Tablet PO (20:51)
[2023-10-22] MEDS: Atorvastatin Calcium 40 MG Tablet PO (20:51)
[2023-10-22 21:12] LABS: Hemoglobin A1c 5.1 % (3.8-5.6)
[2023-10-22 21:18] LABS: Cholesterol 108 mg/dL (200); High Density Lipoprotein 22 mg/dL; Thyroid Stim Hormone (TSH) 4.26 uIU/mL (0.358-3.74); Triglycerides 104 mg/dL; Very Low Density Lipoprotein 21 mg/dL (5-40)
[2023-10-22 21:20] LABS: Troponin-I HS 6815 pg/mL (3.0-78.0)
[2023-10-22] MEDS: Vancomycin 125 MG/5 ML Susp PO.SYRINGE PO (23:24)
[2023-10-23] VITALS (11 sets, daily range): BP systolic 97–119; BP diastolic 52–73; PULSE 51–73; RESP 16–18; TEMP 35.6–36.3; O2SAT 98–100
[2023-10-23 00:23] LABS: Partial Thromboplast Time 52.9 Seconds (24.1-36.2)
[2023-10-23 00:36] LABS: Troponin-I HS 17990 pg/mL (3.0-78.0)
[2023-10-23] MEDS: Heparin Injection (Vial) 5,000 UNIT/ML VIAL IV (00:47)
--- NOTE | 2023-10-23 05:55 | EKG12_ITS ---
Test Reason : AM EKG Blood Pressure : / mmHG Vent. Rate : 054 BPM Atrial Rate : 054 BPM P-R Int : 184 ms QRS Dur : 070 ms QT Int : 490 ms P-R-T Axes : 074 -22 -16 degrees QTc Int : 464 ms Sinus bradycardia with occasional Premature ventricular complexes Low voltage QRS Inferior infarct , age undetermined Abnormal ECG When compared with ECG of 22-OCT-2023 19:49, MANUAL COMPARISON REQUIRED, DATA IS UNCONFIRMED Confirmed by AUSTIN DONNELLY, RUEL ([id number]), editor house organ DONATO MEEKS ([id number]) on 10/23/2023 10:50:14 AM Referred By: Confirmed By:RUEL AVILA MD
[2023-10-23] MEDS: Vancomycin 125 MG/5 ML Susp PO.SYRINGE PO ×4 (06:25→23:27)
[2023-10-23] MEDS: Aspirin 81 MG TAB.CHEW PO (06:25)
[2023-10-23] MEDS: 0.9% Saline Lock 10 ML Syringe IV (06:26)
[2023-10-23] MEDS: 0.9% Normal Saline (1000mL) 1,000 ML 15 ML IV (07:38)
[2023-10-23 07:57] LABS: Hematocrit 34.1 % (40-54); Hemoglobin 10.8 g/dL (13.0-16.5); Mean Corp Hgb Conc 31.7 g/dL (32-36); Mean Corpuscular Volume 100.9 fL (80-94); Platelet Count 260 K/mm3 (150-450); RBC Distribution Width CV 14.1 % (11.6-14.6); RBC Distribution Width SD 52.6 fl (35.1-43.9); Red Blood Count 3.38 M/mm3 (4.6-6.2); White Blood Count 6.1 K/mm3 (4.4-11.0)
[2023-10-23 08:36] LABS: Partial Thromboplast Time 37.1 Seconds (24.1-36.2)
--- NOTE | 2023-10-23 08:38 | PN.CARD_ITS ---
Subjective Subjective Patient seen and evaluated. Appears to be doing well. Underwent cardiac catheterization today Objective Data Vital Signs: Vital Signs Temp Pulse Resp BP Pulse Ox O2 Del Method 96.8 F L 54 L 16 112/66 100 Room Air 10/23/23 06:14 10/23/23 06:14 10/23/23 06:14 10/23/23 06:14 10/23/23 06:14 10/23/23 06:14 Oxygen Delivery Method Room Air Weight: 126 lb 15.78 oz Body Mass Index (BMI) 19.9 Intake & Output: Intake and Output for Last 24 Hours 10/21/23 10/22/23 10/23/23 23:59 23:59 23:59 Intake Total 1000 / 1240 346.02 / 346.02 Balance 1000 / 1240 346.02 / 346.02 Lab / Micro Data 10/23/23 06:55 10/22/23 14:10 Labs: Laboratory Results - last 24 hr 10/22/23 14:10: WBC 6.5, RBC 3.53 L, Hgb 11.6 L, Hct 35.3 L, MCV 100.0 H, MCH 32.9 H, MCHC 32.9, RDW Std Deviation 52.1 H, RDW Coeff of Lilliana 14.3, Plt Count 251, MPV 11.0, Immature Gran % (Auto) 2.500 H, Neut % (Auto) 67.2, Lymph % (Auto) 13.7 L, [place] % (Auto) 11.7 H, Eos % (Auto) 4.3, Baso % (Auto) 0.6, Absolute Neuts (auto) 4.4, Absolute Lymphs (auto) 0.89, Nucleated RBC % 0, PT 13.5, INR 1.0, APTT 23.2 L, Sodium 140, Potassium 3.8, Chloride 114 H, Carbon Dioxide 21.0, Anion Gap 5, BUN 26 H, Creatinine 1.13, Est GFR (MDRD) Af Amer 81, Est GFR (MDRD) Non-Af 67, BUN/Creatinine Ratio 23.0 H, Glucose 132 H, Hemoglobin A1c 5.1, Calcium 8.9, Troponin I High Sens 18 10/22/23 16:34: Troponin I High Sens 510 H*, Triglycerides 104, Cholesterol 108, LDL Cholesterol 65, VLDL Cholesterol 21, HDL Cholesterol 22 L, TSH 4.26 H 10/22/23 20:35: Troponin I High Sens 6815 H* 10/22/23 23:53: APTT 52.9 H, Troponin I High Sens 39312 H* 10/23/23 06:55: WBC 6.1, RBC 3.38 L, Hgb 10.8 L, Hct 34.1 L, MCV 100.9 H, MCH 32.0, MCHC 31.7 L, RDW Std Deviation 52.6 H, RDW Coeff of Lilliana 14.1, Plt Count 260, MPV 11.0, APTT 37.1 H Cardiology Labs/Tests 10/22/23 14:10: WBC 6.5, RBC 3.53 L, Hgb 11.6 L, Hct 35.3 L, MCV 100.0 H, MCH 32.9 H, MCHC 32.9, Plt Count 251, MPV 11.0, Immature Gran % (Auto) 2.500 H, Neut % (Auto) 67.2, Lymph % (Auto) 13.7 L, [place] % (Auto) 11.7 H, Eos % (Auto) 4.3, Baso % (Auto) 0.6, Absolute Neuts (auto) 4.4, Nucleated RBC % 0, PT 13.5, INR 1.0, APTT 23.2 L, Sodium 140, Potassium 3.8, Chloride 114 H, Carbon Dioxide 21.0, Anion Gap 5, BUN 26 H, Creatinine 1.13, Est GFR (MDRD) Af Amer 81, Est GFR (MDRD) Non-Af 67, BUN/Creatinine Ratio 23.0 H, Glucose 132 H, Hemoglobin A1c 5.1, Calcium 8.9 10/22/23 16:34: Triglycerides 104, Cholesterol 108, LDL Cholesterol 65, VLDL Cholesterol 21, HDL Cholesterol 22 L 10/22/23 23:53: APTT 52.9 H 10/23/23 06:55: WBC 6.1, RBC 3.38 L, Hgb 10.8 L, Hct 34.1 L, MCV 100.9 H, MCH 32.0, MCHC 31.7 L, Plt Count 260, MPV 11.0, APTT 37.1 H Rhythm: EKG: ECHO: Stress Test: Cardiac Cath: PCI: CT Surgery: Holter monitor: EPS: PPM: CXR: Chest CT Scan: Radiography Diagnostic Testing: Radiology Impression Chest CTA 10/22/23 14:49 IMPRESSION: Consolidation in the right upper lobe as well as right middle and right lower lobes. No evidence of pulmonary embolism. Electronically Signed: Christo Fuentes MD at 15:25 EDT , Physical Exam Const alert, oriented x3 and no apparent distress General Appearance: cooperative HEENT hearing grossly normal bilaterally Head and Scalp: atraumatic Eyes EOMs intact bilaterally Neck General: normal visual inspection Chest inspection of chest normal and palpation of chest normal Resp normal respiratory effort Auscultation: clear to auscultation bilaterally Cardio regular rate, regular rhythm, S1 normal heart sound and S2 normal heart sound Jugular Venous Distention: JVD GI normal to inspection, nondistended, normoactive bowel sounds Extremity normal capillary refill and no pedal edema Peripheral Pulses: Yes pulses 2+ throughout and femoral pulses present Skin no rashes or lesions noted Neuro oriented x3 and CN's II-XII intact bilaterally Psych Appearance: grossly normal and appropriate Assessment & Plan Assessment/Plan (1) Non-STEMI (non-ST elevated myocardial infarction): PLAN: He presents with chest discomfort and is noted to have a non-ST elevation myocardial infarction. He underwent a cardiac catheterization which demonstrated the following: Normal left main coronary artery. Left anterior descending artery with moderate diffuse disease including a diagonal branch with 60 to 70% diffuse stenosis. Left circumflex artery which is totally occluded in the proximal to mid segment. Right coronary artery which is dominant large with diffuse 40 to 50% stenosis noted especially in the mid and distal segments. Based on the above angiographic findings the patient will undergo PCI of the circumflex artery and an echocardiogram performed afterwards. Thank you for allowing me to participate in the care of your patient. Please don't hesitate to call if any issues arise.
[2023-10-23 08:39] LABS: Anion Gap 6 (5-15); BUN 20 mg/dL (7-18); BUN/Creat Ratio 21.8 RATIO (10-20); Chloride 116 mmol/L (98-107); Creatinine, Serum 0.92 mg/dL (0.70-1.30); EST Glomerular Filtration Rate 85 mL/min (>60); Est Glom Filt Rate - Afr Amer 103 mL/min (>60); Estimated Creatinine Clearance 57.39 ml/min; Glucose 97 mg/dL (74-106); Potassium 3.9 mmol/L (3.5-5.1); Sodium Level 141 mmol/L (136-145)
--- NOTE | 2023-10-23 09:13 | CASEMGMT ---
Insurance review for hospitals In-network with [facility] insurance if transfer is recommended is as follows:?[facility], [place], [facility], [facility], [facility], [facility], [facility] ([facility]), [place], [place], [facility], and . Janine Marquez, Discharge Planning Asst.
--- NOTE | 2023-10-23 09:36 | EX.PCM.CONCC ---
Assessment & Plan Assessment/Plan (1) Abnormal chest CT: PLAN: Plan RECOMMENDATIONS: 1. Continue Augmentin that was provided at the time of his discharge from the hospital to complete treatment course. 2. Recommend follow-up chest x-ray or CT scan in 6 to 8 weeks 3. The patient needs to establish care with a primary care physician. 4. Will sign off from a pulmonary perspective. Please call with any additional questions. IMPRESSIONS: 1. Abnormal CT scan We were initially consulted to evaluate the patient on account of his abnormal CT scan on admission. However, the patient was just admitted to the hospital and discharged home 5 days ago after being treated for pneumonia. He has plain film chest x-ray that was completed 6 days ago documented infiltrates in the same areas of distribution as the CT scan. Accordingly, I suspect that the findings noted on the CT imaging of the chest is likely the sequelae of his recent pneumonia. I would not expect these infiltrates to clear completely in only 5 to 6 days. Rather, I would recommend that the patient complete his antibiotic treatment course that was prescribed to him at the time of his discharge and then obtain follow-up chest imaging in 6 to 8 weeks. I do not feel that these areas represent findings consistent with radiation pneumonitis. The patient is stable from a respiratory perspective. I have no additional recommendations at this time. 2. NSTEMI Management as per cardiology. 3. Recent history of oropharyngeal carcinoma status post chemoradiation/chronic kidney disease/chronic diarrhea Complicates care, management, recovery and prognosis. Continue supportive care as noted above. This note was generated with [facility] dictation software. It may contain incorrect words, spelling, and punctuation that were not noted in checking the note before signing. HPI Consult Data Date of Consult: 10/23/23 HPI Narrative Reason for Consultation: Concern for CAP versus radiation pneumonitis HPI Narrative: The patient is a 72-year-old male, with a history as outlined below, who presented to the emergency department on October 21 with chest discomfort. The patient was recently hospitalized October 16 through , during which time, he was treated for a suspected right middle lobe pneumonia with antibiotics. He was ultimately discharged home on Augmentin to complete his treatment course. He was also sent home on p.o. vancomycin for 10 days due to chronic diarrhea and presumed C. difficile colitis. The patient's medical history is significant for oropharyngeal cancer in 2022, for which she is status post chemoradiation. He is followed by oncology services at [facility] and is apparently in remission. On presentation to the emergency department, the patient was documented to be afebrile and hemodynamically stable. He was maintaining appropriate oxygen saturations on room air. Initial laboratory evaluation revealed a normal white blood cell count. Chemistry profile was unrevealing. Troponins were initially elevated at 510 and have increased to 17,990. A CTA chest was obtained and showed no evidence for pulmonary embolism. There was patchy infiltration in the right upper lobe, right middle lobe and lower lobe. Prior chest x-ray from October 16 also demonstrated infiltrates in the aforementioned areas as well. The patient was subsequently admitted to the hospital with consultation placed to cardiology services. The patient currently denies any cough or shortness of breath. He did confirm that his chest discomfort has improved. PFSH Medical History Cancer DVT (deep venous thrombosis) Kidney stones Osteoporosis Smoker Home Medications Lactobacillus acidophilus 10 billion cell capsule (Probacap) 100 mmu cells PO DAILY 10/17/23 [History Last Taken 10/22/23] amoxicillin 875 mg-potassium clavulanate 125 mg tablet 875 mg (0.875 x 875-125 mg) PO Q12H #20 TABLETS 10/17/23 [Rx Last Taken 10/22/23] guaifenesin 600 mg tablet, extended release 12 hr (Mucinex) 600 mg PO BID #14 tabs 10/19/23 [Rx Last Taken 10/22/23] vancomycin 25 mg/mL oral solution (Firvanq) 125 mg PO Q6H 10/22/23 [History Last Taken 10/22/23] Allergy/AdvReac Type Severity Reaction Status Date / Time No Known Allergies Allergy Verified 10/22/23 19:35 Surgical History (Updated 10/22/23 @ 19:31 by Karen Brewer) H/O kidney removal Total knee replacement status Social History Smoking Status: Current every day smoker tobacco type: cigars ROS ROS Narrative 10 systems were reviewed with pertinent positives as noted in the HPI above. Physical Exam Const alert and no apparent distress Constitutional Narrative: is present at the bedside. General Appearance: cooperative HEENT normocephalic and head/scalp atraumatic Eyes PERRL, EOMs intact bilaterally and conjunctivae normal Neck supple General: trachea midline Chest inspection of chest normal Resp normal respiratory effort Auscultation: Negative for rales, rhonchi or wheezes Cardio regular rate and regular rhythm GI normal to inspection, nondistended, normoactive bowel sounds Extremity no clubbing, cyanosis or edema Skin no rashes or lesions noted Neuro oriented x3, CN's II-XII intact bilaterally and moves all extremities Psych cooperative and affect normal Lab / Micro Data 10/23/23 06:55 10/23/23 06:55 Labs: Laboratory Results - last 24 hr 10/22/23 14:10: WBC 6.5, RBC 3.53 L, Hgb 11.6 L, Hct 35.3 L, MCV 100.0 H, MCH 32.9 H, MCHC 32.9, RDW Std Deviation 52.1 H, RDW Coeff of [place]illiana 14.3, Plt Count 251, MPV 11.0, Immature Gran % (Auto) 2.500 H, Neut % (Auto) 67.2, Lymph % (Auto) 13.7 L, [place] % (Auto) 11.7 H, Eos % (Auto) 4.3, Baso % (Auto) 0.6, Absolute Neuts (auto) 4.4, Absolute Lymphs (auto) 0.89, Nucleated RBC % 0, PT 13.5, INR 1.0, APTT 23.2 L, Sodium 140, Potassium 3.8, Chloride 114 H, Carbon Dioxide 21.0, Anion Gap 5, BUN 26 H, Creatinine 1.13, Est GFR (MDRD) Af Amer 81, Est GFR (MDRD) Non-Af 67, BUN/Creatinine Ratio 23.0 H, Glucose 132 H, Hemoglobin A1c 5.1, Calcium 8.9, Troponin I High Sens 18 10/22/23 16:34: Troponin I High Sens 510 H*, Triglycerides 104, Cholesterol 108, LDL Cholesterol 65, VLDL Cholesterol 21, HDL Cholesterol 22 L, TSH 4.26 H 10/22/23 20:35: Troponin I High Sens 6815 H* 10/22/23 23:53: APTT 52.9 H, Troponin I High Sens 33228 H* 10/23/23 06:55: WBC 6.1, RBC 3.38 L, Hgb 10.8 L, Hct 34.1 L, MCV 100.9 H, MCH 32.0, MCHC 31.7 L, RDW Std Deviation 52.6 H, RDW Coeff of [place]illiana 14.1, Plt Count 260, MPV 11.0, APTT 37.1 H, Sodium 141, Potassium 3.9, Chloride 116 H, Carbon Dioxide 19.0 L, Anion Gap 6, BUN 20 H, Creatinine 0.92, Estim Creat Clear Calc 57.39, Est GFR (MDRD) Af Amer 103, Est GFR (MDRD) Non-Af 85, BUN/Creatinine Ratio 21.8 H, Glucose 97, Calcium 9.0 Imaging Radiology Impression Chest CTA 10/22/23 14:49 IMPRESSION: Consolidation in the right upper lobe as well as right middle and right lower lobes. No evidence of pulmonary embolism. Electronically Signed: Christo Fuentes MD at 15:25 EDT , Charges/Coding Visit Charges Inpatient E&M: 38525 Init Hosp L3
--- NOTE | 2023-10-23 09:45 | EKG12_ITS ---
Test Reason : NSTEMI Blood Pressure : / mmHG Vent. Rate : 065 BPM Atrial Rate : 065 BPM P-R Int : 172 ms QRS Dur : 074 ms QT Int : 450 ms P-R-T Axes : 061 -26 -11 degrees QTc Int : 468 ms Sinus rhythm with frequent Premature ventricular complexes Low voltage QRS When compared with ECG of 22-OCT-2023 17:17, MANUAL COMPARISON REQUIRED, DATA IS UNCONFIRMED Confirmed by AUSTIN DONNELLY, RUEL ([id number]), editor index DONATO MEEKS ([id number]) on 10/23/2023 10:51:09 AM Referred By: Confirmed By:RUEL AVILA MD
--- NOTE | 2023-10-23 10:15 | CASEMGMT ---
WILLIAM ESCOBAR chart review: Patient was admitted 10/16-10/19/23 for multifocal pneumonia. See WILLIAM ESCOBAR assessment from 10/18/23. Patient was discharged to home with family support and follow-up plans in place. Patient returned to [facility] ED on 10/22/23 for chest pain and was admitted for NSTEMI. Patient was taken to heart cath and had stent placed. WILLIAM CM in to discuss readmission and discharge planning. Patient does not have PCP and declined list last admission. at bedside and requesting PCP list, WILLIAM ESCOBAR provided. Patient states he has not scheduled outpatient ST yet. Patient states he was taking medications as prescribed. and patient deny needs at discharge. CM will continue to follow this patient and plan for a safe discharge.
--- NOTE | 2023-10-23 10:26 | EKG12_ITS ---
Test Reason : POST CATH Blood Pressure : / mmHG Vent. Rate : 054 BPM Atrial Rate : 054 BPM P-R Int : 198 ms QRS Dur : 068 ms QT Int : 494 ms P-R-T Axes : 069 -32 -22 degrees QTc Int : 468 ms Sinus bradycardia with Premature atrial complexes Left axis deviation Low voltage QRS Abnormal ECG When compared with ECG of 23-OCT-2023 06:01, MANUAL COMPARISON REQUIRED, DATA IS UNCONFIRMED Confirmed by Saturnino Madrid ([id number]), newspaper photo editor CINTHIA GARCIA ([id number]) on 10/25/2023 11:12:44 AM Referred By: KWAME Confirmed By:Saturnino Madrid
[2023-10-23] MEDS: 0.9% Normal Saline (1000mL) 1,000 ML 100 ML IV (10:32)
[2023-10-23] MEDS: guaiFENesin 600 MG Tablet PO ×2 (10:32→21:47)
--- NOTE | 2023-10-23 11:05 | CRPHASE1_ITS ---
Patient Communication Patient Information Former Patient:: Phase I PHII Cardiac Rehab Discussed with Patient:: Yes Guide to Cardiac Rehab Given to Patient:: Yes Cardiac Rehab Facility Choice List Given to Patient:: Yes Communication to Cardiac Rehab Reconciliation Accountant:: Jair Avalos Sessions:: 36 sessions - 3 days/wk, 12 weeks Cardiac Rehabilitation Info Program Information Cardiac Rehabilitation Program Information: Cardiac Rehab The cardiac rehab team at [facility] consists of highly skilled exercise physiologists, nurses, respiratory therapists and physicians working together with you. Our purpose is to help you have a full recovery and achieve the goals you set for yourself. Over the years many of our patients have returned to activities they assumed they would never do again! We can help restore your confidence and motivation to make lifestyle changes that can have a significant impact on your health and quality of life! We can help answer questions and concerns you may have about exercise, lifestyle, medications, diet, stress and anxiety which are common following a hospitalization. WE monitor ECG and vital signs during exercise and discuss your progress with you and report to your physician(s). Cardiac Rehab is proven to help reduce readmissions, improve functional capacity and lower recurrence of problems with your heart. Our Cardiac Rehab program is Certified by the [place] [employer]monary [employer] (AACVPR) and Accredited by the [place] [employer] through our [facility]. You can contact us at . We invite you to call us with your questions or to get started in our program. If you have other questions or concerns be sure to ask your physician/provider during your follow-up visit. WE look forward to seeing you!
--- NOTE | 2023-10-23 11:06 | CRPH1.INSTRU ---
General Education Discussed with Patient CAD and cardiac anatomy and function:: Patient communicates acknowledgment Explanation of diagnoses and procedures:: Patient communicates acknowledgment Sign/Symptoms of CO:: Patient communicates acknowledgment Antiplatelet therapy: Patient communicates acknowledgment Proper use of NTG-SL: Patient communicates acknowledgment Emergency procedures and activation of EMS: Patient communicates acknowledgment Compliance of all prescribed medications: Patient communicates acknowledgment Smoking Risk Factors Patient Nicotine/Smoking Risk Factors Are:: Cigarettes, Cigars, Pipes and Second-hand smoke Recommendations Recommendations Include:: Smoking cessation strategies/Smoking packet Response Code Nicotine/Smoking Response Code:: Patient communicates acknowledgment Dyslipidemia Risk Factors Patient Dyslipidemia Risk Factors Are:: Total Cholesterol, Triglycerides, HDL and LDL Recommendations Recommendations Include:: Lipid profile not available, Reviewed NCEP/ATP guidelines and Therapeutic Lifestyle Change dietary guidelines Response Code Dyslipidemia Response Code:: Patient communicates acknowledgment Hypertension Recommendations Recommendations Include:: Maintain BP <130/85 and Moderation of ETOH Response Code Hypertension:: Patient communicates acknowledgment Heart Disease Risk Factors Patient Heart Disease Risk Factors Are:: Family history of heart disease < 65 years old and Previous cardiac event Recommendations Recommendations Include:: Educated family members of their risk and Educated family members of importance of prevention of heart disease Response Code Heart Disease Response Code:: Patient communicates acknowledgment Metabolic Syndrome Recommendations Recommendations Include:: Reinforce compliance to risk factor modifications and Encouraged follow-up with Primary Care Physician Response Code Metabolic Syndrome Response Code:: Patient communicates acknowledgment Sedentary Recommendations Recommendations Include:: Aerobic exercise 5-7 times/week for 20-30 minutes continuously, Benefits of regular exercise, Discussed home walking program and Monitored Outpatient Cardiac Rehab Response Code Sedentary Response Code:: Patient communicates acknowledgment Stress Recommendations Recommendations Include:: Identification of stressors, and assessment of coping skills and Stress management techniques Response Code Stress Response Code:: Patient communicates acknowledgment
--- NOTE | 2023-10-23 14:26 | CL.D_ITS ---
Patient Name: RUIZ SANTOS Study Date: 10/23/2023 Performing: Sebastian Rausch MD Ht: 66.93 inches 170 cm : 1950 Wt: 126.99 lbs 57.6 kg Age: 72 Gender: male BSA: 1.67 PROCEDURE(S) PERFORMED DC02-(04375)LHC/COR IC12-(37849/C9600)TONY W/WO PTCA, SINGLE CORONARY ARTERY IC13-(20244/C9600)TONY W/WO PTCA, EACH ADD'L ART, SAME MAJOR CLINICAL PROFILE AND INDICATIONS Indications: New Onset Angina <= 2 months Heart Failure: None Stress/Imaging Stress/Image Study Performed: No CAD Presentations: Non-STEMI. Symptom onset Date/Time: 10/22/23 Time Not Available CONCLUSIONS Totally occluded left circumflex artery and moderate disease noted in the left anterior descending artery, diagonal vessel, and right coronary artery. RECOMMENDATIONS Referred for immediate PCI DESCRIPTION OF PROCEDURE The patient arrived to the procedure lab. The risks and benefits of the procedure as well as a full description of our services here and current unavailability of surgical backup were fully explained to the patient and/or their significant other prior to the catheterization. The Timeout was completed, verifying the correct patient and procedure. The patient's procedural site was prepped and draped in the usual fashion. Local anesthetic was given subcutaneously to right radial region with Lidocaine 2%. Using a modified Seldinger technique, arterial access was obtained via the right radial artery, a 6Fr sheath was inserted. Left Coronary Artery selective angiography was performed in multiple views using a 5 Fr. 4.0 [place] catheter. Right Coronary Artery selective angiography was then performed in multiple views using a 5 Fr. 4.0 [place] catheter.The arterial sheath was pulled and a TR Band was applied for hemostasis w/ 10ml air CORONARY ANGIOGRAPHY DOMINANCE: Right Dominant LEFT HEART ASSESSMENT Left Ventricular Ejection Fraction: by Echo 53 % Normal Left Ventricular systolic function LEFT MAIN: Angiographically normal LEFT ANTERIOR DESCENDING ARTERY: Medium size vessel coursing towards the apex of the ventricle with moderate diffuse disease noted. The first diagonal branch has moderate 60 to 70% diffuse proximal disease. CIRCUMFLEX ARTERY: Nondominant vessel which is totally occluded in the midsegment. RIGHT CORONARY ARTERY: Dominant vessel with mild diffuse proximal disease and moderate mid segment disease as well as disease involving the distal posterolateral and posterior descending artery. COMPLICATIONS No Complications PROCEDURE MEDICATIONS Versed 1 mg IV Fentanyl 50 mcg IV Oxygen: 2 L/min via nasal cannula Brilinta 180 mg PO @ 10/23/2023 08:38:59 Heparin given IA 10/23/2023 08:07:06 Heparin 5000 unit(s) IV 10/23/2023 08:38:32 Heparin 4000 unit(s) IV 10/23/2023 09:34:12 Nitro 200 mcg IC 10/23/2023 09:03:21 Nitro 200 mcg IC 10/23/2023 09:23:44 SUMMARY OF HEMODYNAMIC DATA Time AIR REST ECG 07:50:43 Art 134/53 (80) 08:14:09 AO 124/54 (80) SA 08:25:01 Signed By Sebastian Rausch MD On 10/24/2023 09:26:21 Signed By Sebastian Rausch MD On 10/23/2023 12:43:33 Sebastian Rausch MD
--- NOTE | 2023-10-23 14:26 | CL.I_ITS ---
Patient Name: RUIZ SANTOS Study Date: 10/23/2023 Performing: Jair Avalos MD Ht: 66.93 inches 170 cm : 1950 Wt: 126.99 lbs 57.6 kg Age: 72 Gender: male BSA: 1.67 PROCEDURE(S) PERFORMED IC12-(25517/C9600)TONY W/WO PTCA, SINGLE CORONARY ARTERY IC13-(16914/C9600)TONY W/WO PTCA, EACH ADD'L ART, SAME MAJOR CLINICAL PROFILE AND CO-MORBIDITIES Indications: New Onset Angina <= 2 months Heart Failure: None Stress/Imaging Stress/Image Study Performed: No CAD Presentations: Non-STEMI. Symptom onset Date/Time: 10/22/23 Time Not Available CONCLUSIONS Successful PTCA/TONY Prox LCX using [place] 2.25x38 mm, post-dilated using 2.5 mm balloon Successful TONY Prox OM2 using [place] 2.0x8 mm RECOMMENDATIONS ASA Indefronald Sandoval for at least 12 months DESCRIPTION OF PROCEDURE The patient arrived to the procedure lab. The risks and benefits of the procedure as well as a full description of our services here and current unavailability of surgical backup were fully explained to the patient and/or their significant other prior to the catheterization. The Timeout was completed, verifying the correct patient and procedure. The patient's procedural site was prepped and draped in the usual fashion. Local anesthetic was given subcutaneously to right radial region with Lidocaine 2% Using a modified Seldinger technique,arterial access was obtained via the right radial artery, a 6Fr sheath was inserted. Left Coronary Artery selective angiography was performed in multiple views using a 5 Fr. 4.0 [place] catheter. Right Coronary Artery selective angiography was then performed in multiple views using a 5 Fr. 4.0 [place] catheter.The images were reviewed and options discussed. A decision was then made to proceed with an Intervention, IVUS or other adjunct procedure. XB 3.0 Guide catheter was inserted and engaged into the LCA. Runthrough Guide wire was advanced to the Circumflex. Emerge 2.00x15 Balloon catheter was inserted. PTCA balloon inflated at 12 atms for 17 secs. PTCA balloon inflated at 12 atms for 18 secs. PTCA balloon inflated at 12 atms for 18 secs. PTCA balloon inflated at 12 atms for 16 secs. PTCA balloon inflated at 14 atms for 26 secs. Angiogram performed post balloon dilatation. [place] Emerge 2.25x20 Balloon catheter was inserted. PTCA balloon inflated at 12 atms for 17 secs. PTCA balloon inflated at 16 atms for 26 secs. PTCA balloon inflated at 20 atms for 21 secs. PTCA balloon inflated at 12 atms for 7 secs. Angiogram performed post balloon dilatation. [place] Cathy 2.25x38 Drug Eluting stent was inserted. Angiogram performed post stent deployment. [place] Emerge 2.50x20 Balloon catheter was inserted. Angiogram performed post stent deployment. [place] 2.00x8 Drug Eluting stent was inserted. Drug Eluting stent was removed intact, failed to cross lesion Choice Extra Support Guide wire was inserted as a fran wire [place] Cathy 2.0x8 Drug Eluting stent was inserted. Angiogram performed post stent deployment. NC Emerge 2.00x8 Balloon catheter was inserted. The arterial sheath was pulled and a TR Band was applied for hemostasis w/ 10ml air INTERVENTION INFORMATION LESION SITE: Circumflex (Proximal) Lesion Complexity: High/C, lesion length: 36 mm, culprit lesion: Yes Pre Stenosis: 100 % Pre intervention JOSY flow: 0 PROCEDURE: Drug Eluting Stent with pre and post dilatation Post Stenosis: 0 % Post intervention JOSY flow: 3 Lesion Devices: Terumo .014 180cm Runthrough Extra Floppy straight Cordis 6 Fr XB3.0 100cm Guide Catheter Donald Sci EMERGE MR 2.00x15 BALLOON Donald Sci NC EMERGE MR 2.25x20 BALLOON Medtronic 2.25 x 38 CATHY FRONTIER TONY Donald Sci NC EMERGE MR 2.50x20 BALLOON LESION SITE: 2nd OM (Proximal) Lesion Complexity: Non-High/Non-C, lesion length: 6 mm, culprit lesion: No Pre Stenosis: 95 % Pre intervention JOSY flow: 3 PROCEDURE: Drug Eluting Stent Post Stenosis: 0 % Post intervention JOSY flow: 3 Lesion Devices: Terumo .014 180cm Runthrough Extra Floppy straight Cordis 6 Fr XB3.0 100cm Guide Catheter Medtronic 2.00 x 08 CATHY FRONTIER TONY Donald Sci .014 300cm Choice Extra Support Wire straight Donald Sci NC EMERGE MR 2.00x08 BALLOON COMPLICATIONS No Complications PROCEDURE MEDICATIONS Versed 1 mg IV Fentanyl 50 mcg IV Oxygen: 2 L/min via nasal cannula Brilinta 180 mg PO @ 10/23/2023 08:38:59 Heparin given IA 10/23/2023 08:07:06 Heparin 5000 unit(s) IV 10/23/2023 08:38:32 Heparin 4000 unit(s) IV 10/23/2023 09:34:12 Nitro 200 mcg IC 10/23/2023 09:03:21 Nitro 200 mcg IC 10/23/2023 09:23:44 SUMMARY OF HEMODYNAMIC DATA Time AIR REST ECG 07:50:43 Art 134/53 (80) 08:14:09 AO 124/54 (80) SA 08:25:01 Signed By Jair Avalos MD On 10/24/2023 09:26:49 Signed By Jair Avalos MD On 10/23/2023 09:48:32 Jair Avalos MD
[2023-10-23 16:23] LABS: ACT Activated Clotting Time 212 sec (74-137)
[2023-10-23 16:23] LABS: ACT Activated Clotting Time 266 sec (74-137)
--- NOTE | 2023-10-23 18:38 | PCM.PN.HOSP ---
Reason for Visit Reason for Visit: Diagnoses Non-ST elevation (NSTEMI) myocardial infarction (10/22/23) Abnormal findings on diagnostic imaging of other specified body structures (10/22/23) Subjective Subjective Patient was seen and examined today, he underwent a cardiac catheterization today with insertion of 1 stent in the proximal obtuse marginal branch and 1 stent in the proximal circumflex artery. Patient has no chest pain at the time my examination. Patient's is in the room. Objective Data Objective Data Vital Signs: Vital Signs Temp Pulse Resp BP Pulse Ox O2 Del Method 97.0 F L 65 18 107/73 100 Room Air 10/23/23 17:25 10/23/23 17:25 10/23/23 17:25 10/23/23 17:25 10/23/23 17:25 10/23/23 17:25 Oxygen Delivery Method Room Air Weight: 57.6 kg Body Mass Index (BMI) 19.9 Intake & Output: Intake and Output for Last 24 Hours 10/21/23 10/22/23 10/23/23 23:59 23:59 23:59 Intake Total 1000 / 1240 989.02 / 989.02 Balance 1000 / 1240 989.02 / 989.02 Lab / Micro Data 10/23/23 06:55 10/23/23 06:55 Labs: Laboratory Results - last 24 hr 10/22/23 14:10: Hemoglobin A1c 5.1 10/22/23 16:34: Triglycerides 104, Cholesterol 108, LDL Cholesterol 65, VLDL Cholesterol 21, HDL Cholesterol 22 L, TSH 4.26 H 10/22/23 20:35: Troponin I High Sens 6815 H* 10/22/23 23:53: APTT 52.9 H, Troponin I High Sens 37883 H* 10/23/23 06:55: WBC 6.1, RBC 3.38 L, Hgb 10.8 L, Hct 34.1 L, MCV 100.9 H, MCH 32.0, MCHC 31.7 L, RDW Std Deviation 52.6 H, RDW Coeff of Lilliana 14.1, Plt Count 260, MPV 11.0, APTT 37.1 H, Sodium 141, Potassium 3.9, Chloride 116 H, Carbon Dioxide 19.0 L, Anion Gap 6, BUN 20 H, Creatinine 0.92, Estim Creat Clear Calc 57.39, Est GFR (MDRD) Af Amer 103, Est GFR (MDRD) Non-Af 85, BUN/Creatinine Ratio 21.8 H, Glucose 97, Calcium 9.0 10/23/23 08:45: Activated Clotting Time 266 H 10/23/23 09:31: Activated Clotting Time 212 H Radiography Diagnostic Testing: Radiology Impression Echocardiogram 10/22/23 18:27 Interpretation Summary Normal LV size. Left ventricular systolic function is normal. The estimated ejection fraction is 55 %. There are regional wall motion abnormalities as specified. The global longitudinal strain is normal. The global longitudinal strain = -20.7 % (normal). Ordering Physician: Sebastian Rausch Performed By: Mark Martinez RCS Physical Exam Const alert, oriented x3, no apparent distress and healthy appearing General Appearance: cooperative, well kempt and well developed Orientation / Consciousness: awake, oriented to person, oriented to place and oriented to time HEENT normocephalic and moist oral mucous membranes Eyes PERRL, EOMs intact bilaterally and conjunctivae normal Neck supple, no JVD, thyroid normal and no carotid bruits General: trachea midline Resp normal respiratory effort and clear to auscultation bilaterally Auscultation: Negative for rales, rhonchi or wheezes Cardio regular rate, regular rhythm, no murmurs, no rub and no gallops GI normal to inspection, nondistended, normoactive bowel sounds, soft to palpation, non-tender and non-distended Extremity no clubbing, cyanosis or edema Skin no rashes or lesions noted General Skin Exam: no breakdown Neuro oriented x3, CN's II-XII intact bilaterally, no focal motor deficits and no sensory deficits noted Sensorium / Orientation: awake and alert Speech: speech normal Psych affect normal Assessment & Plan Assessment/Plan (1) Non-STEMI (non-ST elevated myocardial infarction): PLAN: Plan 1. Acute non-STEMI type II WA-again patient is status post TONY x 2 today, he will continue on his present medications, if patient is stable in the morning he might be able to go home. #[address] of the chest on 10/22/2023 indicating consolidation in the right upper lobe as well as right middle and right lower lobes, it is unknown whether these areas represent pneumonia, patient's antibiotics were held due to his possibility of C. difficile colitis-he is getting oral vancomycin currently, I have elected to keep him off antibiotics for now and reevaluate him tomorrow #3 possible C. difficile colitis-patient will remain on oral vancomycin Total clinical time spent by myself addressing the patient's medical issues, reviewing all of his data, and collaborating with patient's care team: 35 min Charges/Coding Visit Charges Inpatient E&M: 99150 Subs Hosp L2
[2023-10-23] MEDS: TICAGRELOR 90 MG TABLET PO (21:47)
[2023-10-23] MEDS: Atorvastatin Calcium 40 MG Tablet PO (21:47)
[2023-10-23] MEDS: levoFLOXacin 500 MG Tablet PO (21:47)
[2023-10-24 05:44] VITALS: BP 107/67; PULSE 64; RESP 16; TEMP 36.4; O2SAT 100
[2023-10-24] MEDS: Vancomycin 125 MG/5 ML Susp PO.SYRINGE PO ×2 (05:46→12:46)
[2023-10-24] MEDS: levoFLOXacin 500 MG Tablet PO (05:46)
[2023-10-24 07:07] VITALS: O2SAT 99
[2023-10-24 07:07] LABS: Hematocrit 33.1 % (40-54); Hemoglobin 10.8 g/dL (13.0-16.5); Mean Corp Hgb Conc 32.6 g/dL (32-36); Mean Corpuscular Hgb 32.5 pg (27.0-32.0); Mean Corpuscular Volume 99.7 fL (80-94); Mean Platelet Vol. 10.5 fl (6.2-12.0); Platelet Count 270 K/mm3 (150-450); RBC Distribution Width CV 14.1 % (11.6-14.6); RBC Distribution Width SD 51.7 fl (35.1-43.9); Red Blood Count 3.32 M/mm3 (4.6-6.2); White Blood Count 5.6 K/mm3 (4.4-11.0)
--- NOTE | 2023-10-24 07:08 | PCM.PN.CARD ---
Subjective Subjective Patient seen and evaluated. Appears to be doing well. Objective Data Vital Signs: Vital Signs Temp Pulse Resp BP Pulse Ox O2 Del Method 97.5 F L 64 16 107/67 100 Room Air 10/24/23 05:44 10/24/23 05:44 10/24/23 05:44 10/24/23 05:44 10/24/23 05:44 10/24/23 05:44 Oxygen Delivery Method Room Air Weight: 126 lb 15.78 oz Body Mass Index (BMI) 19.9 Intake & Output: Intake and Output for Last 24 Hours 10/22/23 10/23/23 10/24/23 23:59 23:59 23:59 Intake Total 1000 / 1240 Balance 1000 / 1240 Lab / Micro Data 10/24/23 06:20 10/23/23 06:55 Labs: Laboratory Results - last 24 hr 10/23/23 06:55: WBC 6.1, RBC 3.38 L, Hgb 10.8 L, Hct 34.1 L, MCV 100.9 H, MCH 32.0, MCHC 31.7 L, RDW Std Deviation 52.6 H, RDW Coeff of [place] 14.1, Plt Count 260, MPV 11.0, APTT 37.1 H, Sodium 141, Potassium 3.9, Chloride 116 H, Carbon Dioxide 19.0 L, Anion Gap 6, BUN 20 H, Creatinine 0.92, Estim Creat Clear Calc 57.39, Est GFR (MDRD) Af Amer 103, Est GFR (MDRD) Non-Af 85, BUN/Creatinine Ratio 21.8 H, Glucose 97, Calcium 9.0 10/23/23 08:45: Activated Clotting Time 266 H 10/23/23 09:31: Activated Clotting Time 212 H 10/24/23 06:20: WBC 5.6, RBC 3.32 L, Hgb 10.8 L, Hct 33.1 L, MCV 99.7 H, MCH 32.5 H, MCHC 32.6, RDW Std Deviation 51.7 H, RDW Coeff of [place] 14.1, Plt Count 270, MPV 10.5 Cardiology Labs/Tests 10/23/23 06:55: WBC 6.1, RBC 3.38 L, Hgb 10.8 L, Hct 34.1 L, MCV 100.9 H, MCH 32.0, MCHC 31.7 L, Plt Count 260, MPV 11.0, APTT 37.1 H, Sodium 141, Potassium 3.9, Chloride 116 H, Carbon Dioxide 19.0 L, Anion Gap 6, BUN 20 H, Creatinine 0.92, Est GFR (MDRD) Af Amer 103, Est GFR (MDRD) Non-Af 85, BUN/Creatinine Ratio 21.8 H, Glucose 97, Calcium 9.0 10/24/23 06:20: WBC 5.6, RBC 3.32 L, Hgb 10.8 L, Hct 33.1 L, MCV 99.7 H, MCH 32.5 H, MCHC 32.6, Plt Count 270, MPV 10.5 Rhythm: EKG: ECHO: Stress Test: Cardiac Cath: PCI: CT Surgery: Holter monitor: EPS: PPM: CXR: Chest CT Scan: Radiography Diagnostic Testing: Radiology Impression Echocardiogram 10/22/23 18:27 Interpretation Summary Normal LV size. Left ventricular systolic function is normal. The estimated ejection fraction is 55 %. There are regional wall motion abnormalities as specified. The global longitudinal strain is normal. The global longitudinal strain = -20.7 % (normal). Ordering Physician: Sebastian Rausch Performed By: Mark Martinez RCS Physical Exam Const alert, oriented x3, no apparent distress and healthy appearing General Appearance: cooperative, well kempt and well developed Orientation / Consciousness: awake, oriented to person, oriented to place and oriented to time HEENT normocephalic and moist oral mucous membranes Eyes PERRL, EOMs intact bilaterally and conjunctivae normal Neck supple, no JVD, thyroid normal and no carotid bruits General: trachea midline Resp normal respiratory effort and clear to auscultation bilaterally Auscultation: Negative for rales, rhonchi or wheezes Cardio regular rate, regular rhythm, no murmurs, no rub and no gallops GI normal to inspection, nondistended, normoactive bowel sounds, soft to palpation, non-tender and non-distended Extremity no clubbing, cyanosis or edema Skin no rashes or lesions noted General Skin Exam: no breakdown Neuro oriented x3, CN's II-XII intact bilaterally, no focal motor deficits and no sensory deficits noted Sensorium / Orientation: awake and alert Speech: speech normal Psych affect normal Assessment & Plan Assessment/Plan (1) Non-STEMI (non-ST elevated myocardial infarction): PLAN: He presents with chest discomfort and is noted to have a non-ST elevation myocardial infarction. He underwent a cardiac catheterization which demonstrated the following: Normal left main coronary artery. Left anterior descending artery with moderate diffuse disease including a diagonal branch with 60 to 70% diffuse stenosis. Left circumflex artery which is totally occluded in the proximal to mid segment. Right coronary artery which is dominant large with diffuse 40 to 50% stenosis noted especially in the mid and distal segments. Based on the above angiographic findings the patient did undergo PCI of the circumflex artery with excellent results. Echocardiogram demonstrated preserved left ventricular systolic function. The plan will be to discharge the patient today on guideline directed medical care and to follow-up in the office. Thank you for allowing me to participate in the care of your patient. Please don't hesitate to call if any issues arise.
[2023-10-24 09:04] LABS: ALB/GLOB Ratio 0.7 RATIO (0.9-2.4); AST(SGOT) 74 U/L (15-37); Alanine Aminotransfer ALT/SGPT 28 U/L (16-61); Albumin, Serum 2.3 g/dL (3.2-5.0); Alkaline Phosphatase 79 U/L (45-117); Anion Gap 9 (5-15); BUN 13 mg/dL (7-18); Calcium,Total 8.6 mg/dL (8.5-10.1); Chloride 115 mmol/L (98-107); Creatinine, Serum 0.87 mg/dL (0.70-1.30); EST Glomerular Filtration Rate 91 mL/min (>60); Est Glom Filt Rate - Afr Amer 110 mL/min (>60); Estimated Creatinine Clearance 60.69 ml/min; Globulin 3.5 g/dL (2.2-4.2); Glucose 75 mg/dL (74-106); Protein, Total 5.8 g/dL (6.4-8.2); Sodium Level 143 mmol/L (136-145)
[2023-10-24 09:35] VITALS: BP 101/63; PULSE 68; RESP 18; TEMP 36.1; O2SAT 100
[2023-10-24 09:36] VITALS: PULSE 68
[2023-10-24] MEDS: Aspirin 81 MG TAB.CHEW PO (09:36)
[2023-10-24] MEDS: Metoprolol Tartrate 25 MG Tablet PO (09:36)
[2023-10-24] MEDS: guaiFENesin 600 MG Tablet PO (09:36)
[2023-10-24] MEDS: TICAGRELOR 90 MG TABLET PO (09:36)
--- NOTE | 2023-10-24 09:45 | CASEMGMT ---
WILLIAM ESCOBAR NOTE: Pt to discharge home on Brilinta. WILLIAM ESCOBAR to room. Pt sitting up in chair in room. sitting in room w/pt. Introduced self and role. Provided w/Brilinta 30-day free trial offer and instructed on use. Pt and made aware to f/u with sustainability officer if refills are not affordable to discuss other possible more affordable options. Questions answered. They voice understanding. states she has contacted [facility] and they are reviewing pt's information, as pt may be able to get established w/Dr Shaver, but she is awaiting response about this. She is not sure if they need further information. WILLIAM ESCOBAR placed call to [facility]. Per medical secretary teacher, they still need the new patient intake form. WILLIAM ESCOBAR completed this form and faxed to [place] at this time. and pt made aware and voice appreciation. Pt and deny having further discharge planning needs/concerns. Katherine FARRELL RN, CM
--- NOTE | 2023-10-24 10:00 | EKG12_ITS ---
Test Reason : AM EKG Blood Pressure : / mmHG Vent. Rate : 072 BPM Atrial Rate : 072 BPM P-R Int : 166 ms QRS Dur : 070 ms QT Int : 432 ms P-R-T Axes : 066 -20 007 degrees QTc Int : 473 ms Sinus rhythm with occasional Premature ventricular complexes Low voltage QRS Inferior infarct , age undetermined Abnormal ECG When compared with ECG of 23-OCT-2023 10:26, MANUAL COMPARISON REQUIRED, DATA IS UNCONFIRMED Confirmed by Saturnino Madrid ([id number]), graphics editor CINTHIA GARCIA ([id number]) on 10/25/2023 11:09:52 AM Referred By: KWAME Confirmed By:Saturnino Madrid
[2023-10-24 13:02] LABS: ACT Activated Clotting Time 266 sec (74-137)
[2023-10-24 13:02] LABS: ACT Activated Clotting Time 212 sec (74-137)
[2023-10-24 15:35] VITALS: BP 105/59; PULSE 63; RESP 18; TEMP 36.7; O2SAT 100
--- NOTE | 2023-10-24 15:38 | DCINST_ITS ---
Discharge Instructions Diet Discharge Diet: No restrictions Activity Discharge Activity: Return to Normal Activity Weight Bearing Status: Full weight bearing Follow Up Care Test Results: Test results from this visit will be discussed in further detail at your follow- up appointment, if applicable. Discharge Plan Admission Admit Date/Time: 10/22/23 18:01 Primary Reason for Your Visit: Acute heart attack Attending Provider: Ashwin Garcia Primary Care Provider: Mary Shaver Consulting Providers: Sebastian Rausch; Pablo Thomason; Geoffrey Whiteside Instructions Additional Instructions / Restrictions: Take only Tylenol for pain, do not take any ibuprofen, Aleve, or extra aspirin above 81 mg daily Discharge Orders/Prescriptions Prescriptions: New aspirin 81 mg Tablet,Chewable 81 mg PO BREAKFAST Qty: 0 0RF atorvastatin 40 mg Tablet 40 mg PO QHS Qty: 30 0RF levofloxacin 500 mg Tablet 500 mg PO DAILY@0600 Qty: 3 0RF Rx Instructions: Started on 10/25/2023 metoprolol tartrate 25 mg Tablet 25 mg PO BID Qty: 60 0RF Brilinta 90 mg Tablet 90 mg PO BID Qty: 60 0RF Continued Probacap 10 billion cell capsule 100 mmu cells PO DAILY guaifenesin [Mucinex] 600 mg tablet extended release 12hr 600 mg PO BID Qty: 14 0RF vancomycin [Firvanq] 25 mg/mL Recon Soln 125 mg PO Q6H Discontinued amoxicillin-pot clavulanate [amoxicillin-pot clavulanate] 875-125 mg tablet 875 mg PO Q12H Qty: 20 0RF Referrals / Follow Up: Mary Shaver MD [Primary Care Provider] - See Referral Note (As scheduled previously) Sebastian Rausch MD [Med Staff - Active Staff] - See Referral Note (Office will call you to schedule an appointment, if you do not hear from them by this Sunday, call them to schedule an appointment) Care Physician,No Primary [Non-Staff] - Disposition Disposition (needs filled in before D/C Order can be placed): Home, Self Care
--- NOTE | 2023-10-24 15:42 | DS.PCM_ITS ---
Providers Date of Admission: 10/22/23 Date of Discharge: 10/24/23 Primary Care Physician: Mary Shaver MD Consultations 10/22/23 19:21 Consult: Cardiology Routine Consulting Provider: Sebastian Rausch Reason for Consult: NSTEMI EMERGENT Consult: No Notified: Yes Date Notified: 10/23/23 Time Notified: 06:23 Method of Notification: Text Consult: Jewel Bearing Facer / Pulmonary Medicine Routine Consulting Provider: Intensivists/Pulmonary Med Reason for Consult: concern for CAP vs radiation pneumonitis EMERGENT Consult: No Notified: Yes Date Notified: 10/23/23 Time Notified: 06:28 Method of Notification: Text Reason For Visit: NSTEMI Diagnosis Discharge Diagnosis (1) Non-STEMI (non-ST elevated myocardial infarction): Status: Acute Code(s): I21.4 - Non-ST elevation (NSTEMI) myocardial infarction Plan 1. Acute non-STEMI type II OH-again patient is status post TONY x 2 today, he will continue on his present medications, if patient is stable in the morning he might be able to go home. #[address] of the chest on 10/22/2023 indicating consolidation in the right upper lobe as well as right middle and right lower lobes, it is unknown whether these areas represent pneumonia, patient's antibiotics were held due to his possibility of C. difficile colitis-he is getting oral vancomycin currently, I have elected to keep him off antibiotics for now and reevaluate him tomorrow #3 possible C. difficile colitis-patient will remain on oral vancomycin #4 community-acquired pneumonia present on admission Total clinical time spent by myself addressing the patient's medical issues, reviewing all of his data, and collaborating with patient's care team: 35 min Medications at Discharge Home Medications Lactobacillus acidophilus 10 billion cell capsule (Probacap) 100 mmu cells PO DA MINA 10/17/23 guaifenesin 600 mg tablet, extended release 12 hr (Mucinex) 600 mg PO BID #14 tabs 10/19/23 vancomycin 25 mg/mL oral solution (Firvanq) 125 mg PO Q6H 10/22/23 aspirin 81 mg chewable tablet 81 mg PO BREAKFAST #0 tabs 10/24/23 atorvastatin 40 mg tablet 40 mg PO QHS #30 tabs 10/24/23 levofloxacin 500 mg tablet 500 mg PO DAILY@0600 #3 tabs 10/24/23 metoprolol tartrate 25 mg tablet 25 mg PO BID #60 tabs 10/24/23 ticagrelor 90 mg tablet (Brilinta) 90 mg PO BID #60 tabs 10/24/23 Hospital Course Operations None Procedures 2-D Echocardiogram and Cardiac catheterization (With insertion of TONY X2) Summary of Care Provided Minutes Spent on Discharge: 32 Hospital Course: This 72-year-old white male was seen in the emergency room at [facility] with complaints of acute chest pain which radiated into his back. He had the discomfort for approximately 1 and half hours before coming to the ER. Patient had been admitted to the hospital with a diagnosis of pneumonia few days ago and he is currently taking Augmentin. Workup included a CT of the chest which showed no evidence of pulmonary embolism, consolidation in the right upper lobe as well as right middle lobe and right lower lobes was seen. Patient is EKG showed normal sinus rhythm with some nonspecific ST-T wave changes anteriorly delta troponin returned at 510, second EKG showed improvement of ST-T wave segments, cardiology was contacted and the patient was admitted to PCU and seen in consultation by cardiology. Patient was placed on a heparin drip and Nitropaste. Patient was monitored on telemetry, echocardiogram showed normal ejection fraction, and troponin peaked at 17,990. Patient underwent a cardiac catheterization which revealed occlusive coronary disease, he had two drug- eluting stents placed, there were no complications during his hospitalization, patient was maintained on antibiotics for pneumonia and received oral vancomycin for presumed C. difficile infection-patient however did not have a positive toxin in his stool. On 10/24/2023, patient was seen and examined: On examination he appeared in good health and spirits. Vital signs as documented. Skin warm and dry and without overt rashes. Neck without JVD, neck was supple, trachea midline, thyroid was normal. Lungs clear bilaterally, normal air movement was noted. Heart exam notable for regular rhythm, normal sounds and absence of murmurs, rubs or gallops. Abdomen unremarkable and without evidence of organomegaly, masses, or abdominal aortic enlargement. Bowel sounds are present, abdomen is not distended. Extremities nonedematous, no cyanosis was noted, no clubbing was noted. Neuro: Cranial nerves II through XII are grossly intact, no focal motor deficits were noted, sensation to light touch and pinprick intact, motor exam 5/5 throughout. Psych: Patient is alert and oriented x3, he does not appear anxious or depressed, he does not appear agitated. On 10/24/2023, patient was seen and examined and felt to be in stable condition for discharge home Weight / BMI Weight Weight: 57.6 kg Body Mass Index (BMI) 19.9 ABG / Lab / Microbiology Data 10/24/23 06:20 10/24/23 06:20 Laboratory: Laboratory Results - last 24 hr 10/23/23 08:43: Activated Clotting Time 266 H 10/23/23 08:45: Activated Clotting Time 266 H 10/23/23 09:29: Activated Clotting Time 212 H 10/23/23 09:31: Activated Clotting Time 212 H 10/24/23 06:20: WBC 5.6, RBC 3.32 L, Hgb 10.8 L, Hct 33.1 L, MCV 99.7 H, MCH 32.5 H, MCHC 32.6, RDW Std Deviation 51.7 H, RDW Coeff of [place]ill[place] 14.1, Plt Count 270, MPV 10.5, Sodium 143, Potassium 4.0, Chloride 115 H, Carbon Dioxide 19.0 L, Anion Gap 9, BUN 13, Creatinine 0.87, Estim Creat Clear Calc 60.69, Est GFR (MDRD) Af Amer 110, Est GFR (MDRD) Non-Af 91, BUN/Creatinine Ratio 15.0, Glucose 75, Calcium 8.6, Total Bilirubin 0.50, AST 74 H, ALT 28, Alkaline Phosphatase 79, Total Protein 5.8 L, Albumin 2.3 L, Globulin 3.5, Albumin/Globulin Ratio 0.7 L D/C Instructions Discharge Diet: No restrictions Weight Bearing Status: Full weight bearing Meaningful Use Info Meaningful Use Diagnoses (Choose all that apply): AMI AMI/Post PCI/Angioplasty Aspirin given w/in 24hrs of arrival?: Yes ASA at discharge?: Yes Antiplatelet Therapy at Discharge:: Yes Statins at discharge?: Yes Sam/ARB at discharge?: No Reason Sam/ARB not ordered:: Not indicated Beta Kailee at discharge?: Yes Done w/ Acute OH measure.: Yes Documented LVEF (%): 55 Discharge Plan Admission Admit Date/Time: 10/22/23 18:01 Primary Reason for Your Visit: Acute heart attack Attending Provider: Ashwin Garcia Primary Care Provider: Mary Shaver Consulting Providers: Sebastian Rausch; Pablo Thomason; Geoffrey Whiteside Instructions Additional Instructions / Restrictions: Take only Tylenol for pain, do not take any ibuprofen, Aleve, or extra aspirin a zafar 81 mg daily Discharge Orders/Prescriptions Prescriptions: New aspirin 81 mg Tablet,Chewable 81 mg PO BREAKFAST Qty: 0 0RF atorvastatin 40 mg Tablet 40 mg PO QHS Qty: 30 0RF levofloxacin 500 mg Tablet 500 mg PO DAILY@0600 Qty: 3 0RF Rx Instructions: Started on 10/25/2023 metoprolol tartrate 25 mg Tablet 25 mg PO BID Qty: 60 0RF Brilinta 90 mg Tablet 90 mg PO BID Qty: 60 0RF Continued Probacap 10 billion cell capsule 100 mmu cells PO DAILY guaifenesin [Mucinex] 600 mg tablet extended release 12hr 600 mg PO BID Qty: 14 0RF vancomycin [Firvanq] 25 mg/mL Recon Soln 125 mg PO Q6H Discontinued amoxicillin-pot clavulanate [amoxicillin-pot clavulanate] 875-125 mg tablet 875 mg PO Q12H Qty: 20 0RF Referrals / Follow Up: Mary Shaver MD [Primary Care Provider] - See Referral Note (As scheduled pre viously) Sebastian Rausch MD [Med Staff - Active Staff] - See Referral Note (Office will call you to schedule an appointment, if you do not hear from them by this Sunday, call them to schedule an appointment) Care Physician,No Primary [Non-Staff] - Disposition Disposition (needs filled in before D/C Order can be placed): Home, Self Care Charges/Coding Visit Charges Inpatient E&M: 90242 Disch Hosp >30min
== END 2023-10-24 16:01 | disposition home or self-care (01) | DRG 321 ==
LOC: ED 18:06 → PCU 18:18
PROVIDERS: Internal Medicine Cardiovascular Disease; Admitting Provider Hospitalist; Emergency Provider Emergency Medicine; PCP Family Medicine; Visit Provider Internal Medicine
DX: I21.4 Non-ST elevation (NSTEMI) myocardial infarction (principal); J18.9 Pneumonia, unspecified organism; A04.72 Enterocolitis due to Clostridium difficile, not specified as recurrent; N18.30 Chronic kidney disease, stage 3 unspecified; Z90.5 Acquired absence of kidney; Z79.2 Long term (current) use of antibiotics; Z85.818 Personal history of malignant neoplasm of other sites of lip, oral cavity, and pharynx; Z92.3 Personal history of irradiation; Z92.21 Personal history of antineoplastic chemotherapy; Z87.891 Personal history of nicotine dependence; Z82.49 Family history of ischemic heart disease and other diseases of the circulatory system
CPT/HCPCS: 36415; 71275; 80048; 80053; 80061; 83036; 84443; 84484; 85025; 85027; 85347; 85610; 85730; 92928; 92929; 93005; 93308; 93356; 93454; 97802; 99152; 99153; 99285; C1769; C1874; J7030; Q9967; A4216; C1725; C1887; C1894; C9600; C9601; J2405

== ENCOUNTER → 2023-11-27 | Outpatient (CLI) | payer MEDICARE, SELFPAY ==
[2023-11-27 07:45] LABS: AST(SGOT) 20 U/L (15-37); Alanine Aminotransfer ALT/SGPT 60 U/L (16-61); Albumin, Serum 3.3 g/dL (3.2-5.0); Alkaline Phosphatase 88 U/L (45-117); Bilirubin, Direct 0.16 mg/dL (0.00-0.30); Cholesterol 94 mg/dL (200); Globulin 3.3 g/dL (2.2-4.2); High Density Lipoprotein 44 mg/dL; Protein, Total 6.6 g/dL (6.4-8.2); Triglycerides 91 mg/dL; Very Low Density Lipoprotein 18 mg/dL (5-40)
== END | disposition home or self-care (01) ==
PROVIDERS: PCP Family Medicine; Referring Provider Internal Medicine Cardiovascular Disease; Visit Provider Internal Medicine Cardiovascular Disease
DX: I24.9 Acute ischemic heart disease, unspecified (principal)
CPT/HCPCS: 36415; 80061; 80076

== ENCOUNTER → 2024-11-28 | Outpatient (CLI) | payer MEDICARE, SELFPAY ==
[2024-11-28 07:35] LABS: Cholesterol 102 mg/dL (<=200); High Density Lipoprotein 35 mg/dL; Low Density Lipoprotein Calc. 45 mg/dL; Triglycerides 110 mg/dL; Very Low Density Lipoprotein 22 mg/dL (5-40); cholesterol:hdl ratio screen 2.92
[2024-11-28 07:40] LABS: AST(SGOT) 26 U/L (<=37); Alanine Aminotransfer ALT/SGPT 31 U/L (<=46); Albumin, Serum 3.8 g/dL (3.4-4.8); Alkaline Phosphatase 103 U/L (40-129); Bilirubin, Direct 0.23 mg/dL (0.00-0.30); Globulin 2.6 g/dL (2.2-4.2); Protein, Total 6.5 g/dL (5.9-8.4); Total Bilirubin 0.62 mg/dL (0.00-1.30)
== END | disposition home or self-care (01) ==
LOC: LAB 06:31
PROVIDERS: PCP Family Medicine; Referring Provider Internal Medicine Cardiovascular Disease; Visit Provider Internal Medicine Cardiovascular Disease
DX: E78.00 Pure hypercholesterolemia, unspecified (principal); I25.10 Atherosclerotic heart disease of native coronary artery without angina pectoris; I25.2 Old myocardial infarction
CPT/HCPCS: 36415; 80061; 80076